=== PATIENT | female | born 1985 | race Hispanic/Latino ===

== ENCOUNTER 2019-04-15 15:53 | Emergency (ER) | payer OTHER ==
[~2019-04-15] VITALS: Ht 154.9 cm; Wt 78.0 kg
--- OUTSIDE RECORDS SUMMARY | 2019-04-15 15:56 | XMS REPORT | Continuity of Care Document ---
Author Author AudioTag Address Unknown Phone Unavailable Care Team Providers Care Gas Well Pumper Name Role Phone Quaero Unavailable Unavailable Problems Problem Status Onset Date Classification Date Reported Comments Source Other chest pain 07/24/2018 02/04/2019 [facility] Other complications of gastric band procedure 07/21/2018 01/30/2019 [facility] Chest pain 07/18/2018 02/04/2019 [facility] CHEST PAIN/ SOB Active 07/17/2018 [facility] BAND MALFUNCTION Active 06/08/2018 [facility] UNK Active 05/11/2018 [facility] E66.01 V Active 04/23/2018 [facility] E66.01 Active 04/05/2018 [facility] DX: K95.09=OTHER COMPLICATIONS OF GASTRI Active 04/03/2018 [facility] Other ovarian cyst, left side 12/01/2017 03/01/2018 [facility] Abdominal pain 11/23/2017 03/01/2018 [facility] Ovarian cyst 11/23/2017 03/01/2018 [facility] ABDOMINAL PAIN Active 11/23/2017 [facility] DX: K21.9=GASTRO-ESOPHAGEAL REFLUX DISEA Active 06/27/2017 [facility] SOB Active 04/26/2017 Problem 04/24/[address] [facility] Discharge Diagnosis: Acute gastritis 03/26/2015 03/30/2015 [facility] Discharge Diagnosis: Acute headache 03/26/2015 03/30/2015 [facility] NECK PAIN Active 03/26/2015 [facility] Discharge Diagnosis: VAginal bleeding 01/25/2014 01/27/2014 [facility] Discharge Diagnosis: Dysfunctional uterine bleeding 01/25/2014 01/27/[address] [facility] [address] SENT Active 01/25/2014 [facility] Bariatric surgery status 12/06/2018 [facility] Gastric band malfunction Active Problem 02/04/2019 [facility] Gastro-esophageal reflux disease without esophagitis 12/04/2018 [facility] Other gastritis without bleeding 12/04/2018 [facility] Allergy status to other antibiotic agents status 02/04/2019 [facility] Nicotine dependence, cigarettes, uncomplicated 02/04/2019 [facility] Body mass index 40.0-44.9, adult 01/30/2019 [facility] Surgical operation with implant of artificial internal device as the cause of abnormal reaction of the patient, or of later complication, without mention of misadventure at the time of the procedure 01/30/2019 [facility] Morbid obesity due to excess calories 01/30/2019 [facility] Essential hypertension 01/30/2019 [facility] Medications Medication Details Route Status Patient Instructions Ordering Provider Order Date Source Diazepam 5 MG Oral Tablet [Valium] 5 mg=1 tab, PO, TID, PRN Muscle Spasms, X 3 day, # 9 tab, 0 Refill(s) No Longer Active 07/18/2018 [facility] Fentanyl 50 microgram, Route: IVP, ONCE, Dosing Weight 104.091, kg, Priority: STAT, Start date: 07/17/18 23:54:00 CDT, Stop date: 07/17/18 23:54:00 CDT No Longer Active 07/18/2018 [facility] Morphine 4 mg, 1 mL, Route: IVP, Drug form: SOLN, ONCE, Dosing Weight 104.091, kg, Priority: STAT, Start date: 07/17/18 22:52:00 CDT, Stop date: 07/17/18 22:52:00 CDTNotes: (Same as:MORPhine Sulfate) Inactive 07/18/2018 [facility] NS (Bolus) IV 1,000 mL, 1,000 ml/hr, Infuse Over: 1 hr, Route: IV, 1,000, Drug form: INJ, ONCE, Priority: STAT, Dosing Weight 104.091 kg, Start date: 07/17/18 22:31:00 CDT, Stop date: 07/17/18 22:31:00 CDT Inactive 07/18/2018 [facility] Zofran 4 mg, 2 mL, Route: IVP, Drug form: INJ, ONCE, Dosing Weight 104.091, kg, Priority: STAT, Start date: 07/17/18 22:31:00 CDT, Stop date: 07/17/18 22:31:00 CDTNotes: (Same as: Zofran) MEDICATION WASTE Product Size: 4 mg Product Wasted: ___ mg Inactive 07/18/2018 [facility] Morphine 4 mg, 1 mL, Route: IVP, Drug form: SOLN, ONCE, Dosing Weight 104.091, kg, Priority: STAT, Start date: 07/17/18 22:31:00 CDT, Stop date: 07/17/18 22:31:00 CDTNotes: (Same as:MORPhine Sulfate) Inactive 07/18/2018 [facility] Saline Flush 0.9% 10 mL, Route: IVP, Drug Form: INJ, Dosing Weight 104.091, kg, PRN, PRN Line Flush, Start date: 07/17/18 22:30:00 CDT, Duration: 30 day, Stop date: 08/16/18 21:29:00 CSTNotes: (Same as: BD Posiflush) No Longer Active 07/18/2018 [facility] Ondansetron 4 MG Disintegrating Tablet [Zofran] 4 mg=1 tab, PO, BID, PRN Nausea and Vomiting, Dissolve tab under tongue, # 10 tab, 0 Refill(s) Active 07/13/2018 [facility] omeprazole 20 mg oral delayed release capsule 20 mg=1 cap, PO, BID, # 60 cap, 0 Refill(s) Active 07/13/2018 [facility] tramadol hydrochloride 50 MG Oral Tablet 50 mg=1 tab, PO, Q6H, PRN Pain Score 6-10, X 7 day, # 28 tab, 0 Refill(s) No Longer Active 07/13/2018 [facility] Acetaminophen 1,000 mg, 31.23 mL, Route: PO, Drug form: LIQ, Q6Hnow, Dosing Weight 107.727, kg, Start date: 07/12/18 11:00:00 CDT, Duration: 30 day, Stop date: 08/11/18 5:00:00 CSTNotes: Max fumgrvysliirk=5422dc/day (4 gm/day). (Same as: Tylenol) No Longer Active 07/12/2018 [facility] Lovenox 30 mg, 0.3 mL, Route: SUB-Q, Drug form: INJ, [id number], Dosing Weight 107.727, kg, Start date: 07/12/18 9:00:00 CDT, Duration: 30 day, Stop date: 08/10/18 21:00:00 CSTNotes: (Same as: Lovenox) No Longer Active 07/12/2018 [facility] Famotidine 20 mg, 2 mL, Route: IVP, Drug form: INJ, Q12H- 10, Dosing Weight 107.727, kg, Start date: 07/11/18 23:00:00 CDT, Duration: 30 day, Stop date: 08/10/18 22:00:00 NIB ASSEMBLER No Longer Active 07/12/2018 [facility] Lactated Ringers IV 1,000 mL 1,000 mL, Rate: 100 ml/hr, Infuse over: 10 hr, Route: IV, Dosing Weight 107.727 kg, Total Volume: 1,000, Start date: 07/11/18 20:20:00 CDT, Duration: 30 day, Stop date: 08/10/18 20:19:00 NIB ASSEMBLER, 2.2, m2 No Longer Active 07/12/2018 [facility] Sodium Chloride 0.9% IV 984.8 mL + M.V.I.-12 10 mL Daily + folic acid IV 1 mg Daily + thiamine IV 5 984.8 mL, Rate: 100 ml/hr, Infuse over: 9.8 hr, Route: IV, Dosing Weight 107.727 kg, Total Volume: 984.8, Start date: 07/11/18 20:14:00 CDT, Duration: 1 doses or times, Stop date: 07/12/18 6:13:00 CDT, 2.2, m2 Inactive 07/12/2018 [facility] Acetaminophen 1,000 mg, 100 mL, Route: IVPB, Drug form: INJ, Q6H, Dosing Weight 107.727, kg, Start date: 07/11/18 19:31:00 CDT, Duration: 30 day, Stop date: 08/10/18 16:00:00 CSTNotes: Infuse over 15 minutes Do not exceed 4gm/day of acetaminophen MEDICATION WASTE Product Size: 1000 mg Product Wasted: ___ mg No Longer Active 07/12/2018 [facility] Ondansetron 4 mg, 2 mL, Route: IVP, Drug form: INJ, Q6H, Dosing Weight 107.727, kg, Start date: 07/11/18 18:00:00 CDT, Duration: 30 day, Stop date: 08/10/18 12:00:00 CSTNotes: (Same as: Cassy) MEDICATION WASTE Product Size: 4 mg Product Wasted: ___ mg No Longer Active 07/11/2018 [facility] sugammadex (ANES) Route: IV, Drug form: SOLN, ONCE, Stop date: 07/11/18 16:31:00 CDT Inactive 07/11/2018 [facility] sugammadex 500 mg, 5 mL, Route: IV, Drug form: SOLN, ONCALL, Start date: 07/11/18 16:24:00 CDT, Duration: 1 doses or times, Stop date: 07/11/18 16:24:00 CDTNotes: (Same as: Bridion) No Longer Active 07/11/2018 [facility] cefOXitin (ANES) Route: IV, Drug form: INJ, ONCE, Stop date: 07/11/18 16:14:00 CDT Inactive 07/11/2018 [facility] fentaNYL (ANES) Route: IV, Drug form: INJ, ONCE, Stop date: 07/11/18 16:14:00 CDT Inactive 07/11/2018 [facility] ondansetron (ANES) Route: IV, Drug form: INJ, ONCE, Stop date: 07/11/18 16:14:00 CDT Inactive 07/11/2018 [facility] dexamethasone (ANES) Route: IV, Drug form: INJ, ONCE, Stop date: 07/11/18 16:09:00 CDT Inactive 07/11/2018 [facility] rocuronium (ANES) Route: IV, Drug form: INJ, ONCE, Stop date: 07/11/18 15:59:00 CDT Inactive 07/11/2018 [facility] sugammadex 200 mg, 2 mL, Route: IV, Drug form: SOLN, ONCALL, Start date: 07/11/18 15:49:00 CDT, Duration: 1 doses or times, Stop date: 07/11/18 15:49:00 CDTNotes: (Same as: Bridion) No Longer Active 07/11/2018 [facility] acetaminophen (ANES) 10 mg Route: IV, Drug form: INJ, Start date: 07/11/18 15:38:00 CDT, Stop date: 07/11/18 16:38:00 CDT Inactive 07/11/2018 [facility] Dexamethasone 4 mg, 1 mL, Route: IVP, Drug form: INJ, ONCE, Dosing Weight 107.727, kg, PRN Nausea & Vomiting, Start date: 07/11/18 14:09:00 CDTNotes: Concentration: 4mg/ml Inactive 07/11/2018 [facility] Promethazine 6.25 mg, 0.25 mL, Route: IVPB, Drug form: INJ, ONCE, Dosing Weight 107.727, kg, PRN Nausea & Vomiting, Start date: 07/11/18 14:09:00 CDTNotes: Do not give IV push. (Same as: Phenergan) Inactive 07/11/2018 [facility] Ketorolac 30 mg, 1 mL, Route: IVP, Drug form: INJ, ONCE, Dosing Weight 107.727, kg, Start date: 07/11/18 14:09:00 CDT, Stop date: 07/11/18 14:09:00 CDTNotes: (Same as:Toradol) IV bolus must be given >15 seconds. Give IM administration slowly and deeply into the muscle. Not for use > 4 days MEDICATION WASTE Product Size: 30 mg Product Wasted: ___ mg Inactive 07/11/2018 [facility] Ondansetron 4 mg, 2 mL, Route: IVP, Drug form: INJ, ONCE, Dosing Weight 107.727, kg, PRN Nausea & Vomiting, Start date: 07/11/18 14:09:00 CDTNotes: (Same as: Zofran) MEDICATION WASTE Product Size: 4 mg Product Wasted: ___ mg Inactive 07/11/2018 [facility] Flumazenil 0.2 mg, 2 mL, Route: IVP, Drug form: INJ, PRN, Dosing Weight 107.727, kg, PRN Benzodiazepine Reversal, Initial dose, Start date: 07/11/18 14:09:00 CDT, Duration: 30 day, Stop date: 08/10/18 13:08:00 CSTNotes: (Same as: Romazicon) Inactive 07/11/2018 [facility] Naloxone 0.4 mg, 1 mL, Route: IVP, Drug form: INJ, Q2MIN, Dosing Weight 107.727, kg, PRN Narcotic Reversal, Start date: 07/11/18 14:09:00 CDT, Duration: 8 doses or times, Stop date: 07/12/18 0:00:00 CDTNotes: Same as Narcan Inactive 07/11/2018 [facility] Hydromorphone 0.5 mg, 0.25 mL, Route: IVP, Drug form: INJ, Q5Min, Dosing Weight 107.727, kg, PRN Pain Score 7-10, Start date: 07/11/18 14:09:00 CDT, Duration: 4 doses or times, Stop date: 07/12/18 0:00:00 CDTNotes: Same as Dilaudid Inactive 07/11/2018 [facility] phenylephrine (ANES) Route: IV, Drug form: INJ, ONCE, Stop date: 07/11/18 13:08:00 CDT Inactive 07/11/2018 [facility] celecoxib 200 mg, 1 cap, Route: PO, Drug form: CAP, [id number], Dosing Weight 107.727, kg, Start date: 07/11/18 13:00:00 CDT, Duration: 30 day, Stop date: 08/10/18 1:00:00 CSTNotes: NSAID. Please check indication. Not for seizure. (Same As: CeleBREX) No Longer Active 07/11/2018 [facility] gabapentin 300 mg, 6 mL, Route: PO, Drug form: SOLN, Q8Hnow, Dosing Weight 107.727, kg, Start date: 07/11/18 13:00:00 CDT, Duration: 30 day, Stop date: 08/10/18 5:00:00 CSTNotes: (Same as: Neurontin) No Longer Active 07/11/2018 [facility] gabapentin 300 MG Oral Capsule 300 mg, 1 cap, Route: PO, TID, Dosing Weight 107.727, kg, Start date: 07/11/18 13:00:00 CDT, Duration: 30 day, Stop date: 08/10/18 9:00:00 NIB ASSEMBLER Inactive 07/11/2018 [facility] lidocaine (ANES) Route: IV, Drug form: INJ, ONCE, Stop date: 07/11/18 12:28:00 CDT Inactive 07/11/2018 [facility] propofol (ANES) Route: IV, Drug form: INJ, ONCE, Stop date: 07/11/18 12:28:00 CDT Inactive 07/11/2018 [facility] rocuronium (ANES) Route: IV, Drug form: INJ, ONCE, Stop date: 07/11/18 12:28:00 CDT Inactive 07/11/2018 [facility] midazolam (ANES) Route: IV, Drug form: SOLN, ONCE, Stop date: 07/11/18 12:28:00 CDT Inactive 07/11/2018 [facility] fentaNYL (ANES) Route: IV, Drug form: INJ, ONCE, Stop date: 07/11/18 12:28:00 CDT Inactive 07/11/2018 [facility] ondansetron (ANES) Route: IV, Drug form: INJ, ONCE, Stop date: 07/11/18 12:28:00 CDT Inactive 07/11/2018 [facility] famotidine (ANES) Route: IV, Drug form: INJ, ONCE, Stop date: 07/11/18 12:28:00 CDT Inactive 07/11/2018 [facility] cefOXitin (ANES) Route: IV, Drug form: INJ, ONCE, Stop date: 07/11/18 12:23:00 CDT Inactive 07/11/2018 [facility] Promethazine 12.5 mg, 0.5 mL, Route: IM, Drug form: INJ, Q6H, Dosing Weight 107.727, kg, PRN Nausea & Vomiting, Start date: 07/11/18 12:20:00 CDT, Duration: 30 day, Stop date: 08/10/18 12:19:00 CSTNotes: Do not g rabia IV push. (Same as: Phenergan) No Longer Active 07/11/2018 [facility] Tramadol 100 mg, 2 tab, Route: PO, Drug form: TAB, Q6Hnow, Dosing Weight 107.727, kg, PRN Pain Score 7-10, Start date: 07/11/18 12:20:00 CDT, Duration: 30 day, Stop date: 08/10/18 12:19:00 CSTNotes: Not to exceed 400mg/day. (Same As: Ultram) No Longer Active 07/11/2018 [facility] Sodium Chloride 0.9% IV (ANES) 100 mL + dexmedetomidine (ANES) 200 microgram Route: IV, Drug form: INJ, Start date: 07/11/18 11:30:00 CDT, Stop date: 07/11/18 12:30:00 CDT Inactive 07/11/2018 [facility] Sodium Chloride 0.9% IV (ANES) 100 mL + ketAMINE (ANES) 100 mg Route: IV, Drug form: INJ, Start date: 07/11/18 11:30:00 CDT, Stop date: 07/11/18 12:30:00 CDT Inactive 07/11/2018 [facility] Lactated Ringers Injection IV (ANES) 1000 mL Route: IV, Total Volume: 1,000, Start date: 07/11/18 11:28:00 CDT, Stop date: 07/11/18 12:28:00 CDT Inactive 07/11/2018 [facility] Mefoxin 2 gm, Route: IVPB, Drug form: INJ, PRE OP, Start date: 07/11/18 11:00:00 CDT, Duration: 1 day, Stop date: 07/12/18 10:59:00 CDT, ABX Indication: Surgical ProphylaxisNotes: (Same As: Mefoxin) MEDICATION WASTE Product Size: 2000 mg Product Wasted: ___ mg No Longer Active 07/11/2018 [facility] gabapentin 300 MG Oral Capsule 300 mg, 1 cap, Route: PO, Drug form: CAP, ONCE, Dosing Weight 107.727, kg, Start date: 07/11/18 10:26:00 CDT, Stop date: 07/11/18 10:26:00 CDTNotes: (Same as: Neurontin) Inactive 07/11/2018 [facility] 72 HR Scopolamine 0.0139 MG/HR Transdermal Patch 1 patch, Route: TOP, Dosing Weight 107.727, kg, ONCE, Start date: 07/11/18 10:18:00 CDT, Stop date: 07/11/18 10:18:00 CDT Inactive 07/11/2018 [facility] Celebrex 400 mg, Route: PO, Drug form: CAP, ONCE, Dosing Weight 107.727, kg, Start date: 07/11/18 10:18:00 CDT, Stop date: 07/11/18 10:18:00 CDT Inactive 07/11/2018 [facility] heparin 5,000 unit, Route: SUB-Q, ONCE, Dosing Weight 107.727, kg, Start date: 07/11/18 10:17:00 CDT, Stop date: 07/11/18 10:17:00 CDT Inactive 07/11/2018 [facility] multivitamin 1 tab, PO, Daily, 0 Refill(s) Active 07/11/2018 [facility] 72 HR Scopolamine 0.0139 MG/HR Transdermal Patch 1 patch, Route: TOP, Drug Form: ERFILM, Dosing Weight 110, kg, PRE OP, Apply behind ear. Avoid use in elderly., Start date: 07/11/18 6:00:00 CDT, Duration: 30 day, Stop date: 08/10/18 4:59:00 NIB ASSEMBLER No Longer Active 07/11/2018 [facility] Tramadol 100 mg, Route: PO, Drug form: TAB, PRE OP, Dosing Weight 110, kg, PRN Pain Score 7-10, Start date: 07/11/18 6:00:00 CDT, Duration: 30 day, Stop date: 09/09/18 4:59:00 NIB ASSEMBLER No Longer Active 07/11/2018 [facility] gabapentin 300 mg, Route: PO, PRE OP, Dosing Weight 110, kg, Start date: 07/11/18 6:00:00 CDT, Duration: 30 day, Stop date: 08/10/18 4:59:00 NIB ASSEMBLER No Longer Active 07/11/2018 [facility] celecoxib 400 mg, Route: PO, PRE OP, Dosing Weight 110, kg, Start date: 07/11/18 6:00:00 CDT, Duration: 30 day, Stop date: 08/10/18 4:59:00 NIB ASSEMBLER No Longer Active 07/11/2018 [facility] Acetaminophen 1,000 mg, Route: PO, PRE OP, Dosing Weight 110, kg, Start date: 07/11/18 6:00:00 CDT, Duration: 30 day, Stop date: 08/10/18 4:59:00 NIB ASSEMBLER No Longer Active 07/11/2018 [facility] Emend 40 mg, Route: PO, PRE OP, Dosing Weight 110, kg, Start date: 07/11/18 6:00:00 CDT Active 07/11/2018 [facility] Tramadol 50 mg, Route: PO, Drug form: TAB, Q6H, Dosing Weight 110, kg, PRN Pain Score 4-6, Start date: 07/10/18 16:46:00 CDT, Duration: 30 day, Stop date: 08/09/18 16:45:00 NIB ASSEMBLER Inactive 07/10/2018 [facility] Sodium Chloride 0.9% IV 1,000 mL 1,000 mL, Rate: 25 ml/hr, Infuse over: 40 hr, Route: IV, Dosing Weight 106.091 kg, Total Volume: 1,000, Start date: 05/17/18 12:14:00 CDT, Duration: 30 day, Stop date: 06/16/18 12:13:00 CDT, 2.18, m2 Inactive 05/17/2018 [facility] Omnipaque 300 5 btl, Route: IMPLANT, Dosing Weight 97.727, kg, ONCE, Start date: 04/20/18 13:09:00 CDT, Stop date: 04/20/18 13:09:00 CDT No Longer Active 04/20/2018 [facility] Ketorolac 30 mg, Route: IVP, Drug form: INJ, ONCE, Dosing Weight 97.727, kg, Priority: STAT, Start date: 11/23/17 18:48:00 NIB ASSEMBLER, Stop date: 11/23/17 18:48:00 NIB ASSEMBLER Inactive 11/24/2017 [facility] Ondansetron 4 MG Oral Tablet [Zofran] 4 mg=1 tab, PO, BID, # 10 tab, 0 Refill(s) Active 11/24/2017 [facility] Acetaminophen 300 MG / Codeine Phosphate 30 MG Oral Tablet [Tylenol with Codeine #3] 1 - 2 tab, PO, Q4H, PRN Pain, X 2 day, # 20 tab, 0 Refill(s) No Longer Active 11/24/2017 [facility] Metronidazole 500 MG Oral Tablet [Flagyl] 500 mg=1 tab, PO, Q8H, X 10 day, # 30 tab, 0 Refill(s) No Longer Active 11/24/2017 [facility] ciprofloxacin 500 mg oral tablet 500 mg=1 tab, PO, Q12H, X 7 day, # 14 tab, 0 Refill(s) No Longer Active 11/24/2017 [facility] Zofran 2 mg, Route: IVP, Drug form: INJ, ONCE, Dosing Weight 97.727, kg, Priority: STAT, Start date: 11/23/17 16:54:00 NIB ASSEMBLER, Stop date: 11/23/17 16:54:00 NIB ASSEMBLER Inactive 11/23/2017 [facility] Acetaminophen 325 MG / Hydrocodone Bitartrate 5 MG Oral Tablet [Gasquet 5/325] 1 tab, Route: PO, Drug Form: TAB, Dosing Weight 97.727, kg, ONCE, STAT, Start date: 11/23/17 16:54:00 NIB ASSEMBLER, Stop date: 11/23/17 16:54:00 NIB ASSEMBLER Inactive 11/23/2017 [facility] Fentanyl 100 microgram, Route: IVP, ONCE, Dosing Weight 97.727, kg, Priority: STAT, Start date: 11/23/17 13:36:00 NIB ASSEMBLER, Stop date: 11/23/17 13:36:00 NIB ASSEMBLER Inactive 11/23/2017 [facility] NS (Bolus) IV 1,000 mL, 1,000 ml/hr, Infuse Over: 1 hr, Route: IV, ONCE, Priority: STAT, Dosing Weight 97.727 kg, Start date: 11/23/17 13:36:00 NIB ASSEMBLER, Stop date: 11/23/17 13:36:00 NIB ASSEMBLER Inactive 11/23/2017 [facility] Zofran 4 mg, Route: IVP, Drug form: INJ, ONCE, Dosing Weight 97.727, kg, Priority: STAT, Start date: 11/23/17 13:36:00 NIB ASSEMBLER, Stop date: 11/23/17 13:36:00 NIB ASSEMBLER Inactive 11/23/2017 [facility] tramadol hydrochloride 50 MG Oral Tablet [Ultram] 50 mg=1 tab, PO, Q4H, PRN pain, X 3 day, # 20 tab, 0 Refill(s) Active 03/27/2015 [facility] Promethazine Hydrochloride 12.5 MG Oral Tablet [Phenergan] 12.5 mg=1 tab, PO, Q4H, PRN Other-See Comments, X 3 day, # 18 tab, 0 Refill(s) Active 03/27/2015 [facility] Morphine 2 mg, Route: IVP, Drug form: INJ, ONCE, Dosing Weight 84.091, kg, Priority: STAT, Start date: 03/26/15 22:58:00, Stop date: 03/26/15 22:58:00 Inactive 03/27/2015 [facility] Sodium Chloride 0.154 MEQ/ML Injectable Solution 1,000 mL, 1,000 ml/hr, Infuse Over: 1 hr, Route: IV, ONCE, Priority: STAT, Dosing Weight 84.091 kg, Start date: 03/26/15 22:58:00, Duration: 1 doses or times, Stop date: 03/26/15 22:58:00 Inactive 03/27/2015 [facility] Zofran 4 mg, Route: IVP, Drug form: INJ, ONCE, Dosing Weight 84.091, kg, Priority: STAT, Start date: 03/26/15 22:36:00, Stop date: 03/26/15 22:36:00 Inactive 03/27/2015 [facility] Acetaminophen 325 MG / Hydrocodone Bitartrate 10 MG Oral Tablet 1 tab, Route: PO, Drug Form: TAB, Dosing Weight 84.091, kg, ONCE, STAT, Start date: 03/26/15 21:55:00, Stop date: 03/26/15 21:55:00Notes: Do not exceed 4gm/day of acetaminophen. (Same as: Gasquet 325/10) Inactive 03/27/2015 [facility] Ketorolac 15 mg, Route: IVP, ONCE, Dosing Weight 84.091, kg, Priority: STAT, Start date: 03/26/15 20:32:00, Stop date: 03/26/15 20:32:00 Inactive 03/27/2015 [facility] Sodium Chloride 0.154 MEQ/ML Injectable Solution 1,000 mL, Infuse Over: 1 hr, Route: IV, ONCE, Priority: STAT, Dosing Weight 84.091 kg, Start date: 03/26/15 20:32:00, Duration: 1 doses or times, Stop date: 03/26/15 20:32:00 Inactive 03/27/2015 [facility] Saline Flush 0.9% 10 mL, Route: IVP, Drug Form: INJ, Dosing Weight 84.091, kg, PRN, PRN Line Flush, Start date: 03/26/15 20:32:00, Duration: 30 day, Stop date: 04/25/15 20:31:00Notes: (Same as: BD Posiflush) No Longer Active 03/27/2015 [facility] Acetaminophen 975 mg, Route: PO, Drug form: TAB, ONCE, Dosing Weight 84.091, kg, Priority: STAT, Start date: 03/26/15 19:16:00, Stop date: 03/26/15 19:16:00 Inactive 03/27/2015 [facility] Acetaminophen 325 MG / Hydrocodone Bitartrate 5 MG Oral Tablet [Gasquet 5/325] 1-2 tab, PO, Q4-6H, Pain, # 12 tab, 0 Refill(s) Active 01/25/2014 [facility] medroxyprogesterone acetate 10 MG Oral Tablet [Provera] 10 mg=1 tab, PO, Daily, # 7 tab, 0 Refill(s) Active 01/25/2014 [facility] Provera 10 mg, 1 tab, Route: PO, Drug form: TAB, ONCE, Dosing Weight 81.818, kg, Start date: 01/25/14 3:49:00, Stop date: 01/25/14 3:49:00Notes: (Same as: Provera) Inactive 01/25/2014 [facility] Morphine 4 mg, Route: IVP, ONCE, Dosing Weight 81.818, kg, Start date: 01/25/14 3:22:00, Stop date: 01/25/14 3:22:00 Inactive 01/25/2014 [facility] Acetaminophen 325 MG / Hydrocodone Bitartrate 5 MG Oral Tablet [Gasquet 5/325] 2 tab, Route: PO, Dosing Weight 81.818, kg, ONCE, Start date: 01/25/14 2:00:00, Stop date: 01/25/14 2:00:00 Inactive 01/25/2014 [facility] Allergies, Adverse Reactions, Alerts Substance Category Reaction Severity Reaction type Status Date Reported Comments Source Vancomycin Propensity to adverse reactions to drug Active 04/26/[address] [facility] vancomycin Assertion Drug allergy Active [facility] Immunizations No Data Provided for This Section Results Order Name Results Value Reference Range Date Interpretation Comments Source CARDIAC ENZYMES Troponin-I <0.02 0.00 - 0.40 07/18/2018 [facility] CARDIAC ENZYMES Total CK 59 12 - 191 07/18/2018 [facility] CARDIAC ENZYMES Troponin-I <0.02 0.00 - 0.40 07/18/2018 [facility] ELECTROLYTES AGAP 14.9 10.0 - 20.0 07/18/2018 [facility] ELECTROLYTES Globulin 4.8 2.7 - 4.2 07/18/2018 [facility] ELECTROLYTES B/C Ratio 12 6 - 25 07/18/2018 [facility] ELECTROLYTES A/G Ratio 0.8 0.7 - 1.6 07/18/2018 [facility] ELECTROLYTES eGFR 103 07/18/2018 Result Comment: The eGFR is calculated using the CKD-EPI formula. In most young, healthy individuals the eGFR will be >90 mL/min/1.73m2. The eGFR declines with age. An eGFR of 60-89 may be normal in some populations, particularly the elderly, for whom the CKD-EPI formula has not been extensively validated. Use of the eGFR is not recommended in the following populations:

Individuals with unstable creatinine concentrations, including patients and those with serious co-morbid conditions.

Patients with extremes in muscle mass or diet.

The data above are obtained from the [employer] Education Program (NKDEP) which additionally recommends that when the eGFR is used in patients with extremes of body mass index for purposes of drug dosing, the eGFR should be multiplied by the estimated BMI. [facility] ELECTROLYTES Albumin Lvl 3.6 3.5 - 5.0 07/18/2018 [facility] ELECTROLYTES ALT 74 0 - 65 07/18/2018 [facility] Total Protein 8.4 6.4 - 8.4 07/18/2018 [facility] ELECTROLYTES Glucose Lvl 89 70 - 99 07/18/2018 [facility] ELECTROLYTES Bili Total 0.4 0.2 - 1.3 07/18/2018 [facility] ELECTROLYTES Chloride Lvl 103 95 - 109 07/18/2018 [facility] ELECTROLYTES BUN 9 7 - 22 07/18/2018 [facility] ELECTROLYTES Creatinine Lvl 0.75 0.50 - 1.40 07/18/2018 [facility] ELECTROLYTES Potassium Lvl 3.9 3.5 - 5.1 07/18/2018 [facility] ELECTROLYTES Sodium Lvl 139 135 - 145 07/18/2018 [facility] ELECTROLYTES CO2 25 24 - 32 07/18/2018 [facility] ELECTROLYTES Calcium Lvl 8.9 8.5 - 10.5 07/18/2018 [facility] ELECTROLYTES AST 25 0 - 37 07/18/2018 [facility] ELECTROLYTES Alk Phos 123 39 - 136 07/18/2018 [facility] ENDOCRINOLOGY S Preg Negative *NA* (07/17/18 11:10 PM) Negative 07/18/2018 [facility] HEMATOLOGY Eosinophils # 0.3 0.0 - 0.5 07/18/2018 [facility] HEMATOLOGY Basophils # 0.1 0.0 - 0.2 07/18/2018 [facility] HEMATOLOGY Monocytes # 0.6 0.0 - 0.8 07/18/2018 [facility] HEMATOLOGY Neutrophils # 6.3 1.5 - 8.1 07/18/2018 [facility] HEMATOLOGY Lymphocytes # 3.0 1.0 - 5.5 07/18/2018 [facility] HEMATOLOGY Eosinophils 3.0 0.0 - 4.0 07/18/2018 [facility] HEMATOLOGY Basophils 0.5 0.0 - 1.0 07/18/2018 [facility] HEMATOLOGY Monocytes 6.2 2.0 - 12.0 07/18/2018 [facility] HEMATOLOGY Segs 61.4 45.0 - 75.0 07/18/2018 [facility] HEMATOLOGY Lymphocytes 28.9 20.0 - 40.0 07/18/2018 [facility] HEMATOLOGY PT 13.0 12.0 - 14.7 07/18/2018 [facility] HEMATOLOGY INR 0.98 0.85 - 1.17 07/18/2018 [facility] HEMATOLOGY PTT 31.5 22.9 - 35.8 07/18/2018 [facility] HEMATOLOGY Hct 38.6 36.0 - 48.0 07/18/2018 [facility] HEMATOLOGY RBC 4.48 4.20 - 5.40 07/18/2018 [facility] HEMATOLOGY Hgb 13.0 12.0 - 16.0 07/18/2018 [facility] HEMATOLOGY WBC 10.3 3.7 - 10.4 07/18/2018 [facility] HEMATOLOGY MPV 9.3 7.4 - 10.4 07/18/2018 [facility] HEMATOLOGY Platelet 330 133 - 450 07/18/2018 [facility] HEMATOLOGY RDW 15.0 11.5 - 14.5 07/18/2018 [facility] HEMATOLOGY MCHC 33.6 32.0 - 36.0 07/18/2018 [facility] HEMATOLOGY MCH 29.0 27.0 - 31.0 07/18/2018 [facility] HEMATOLOGY MCV 86.2 80.0 - 98.0 07/18/2018 [facility] CARDIAC ENZYMES CK MB Index 0.5 0.0 - 2.5 07/13/2018 [facility] CARDIAC ENZYMES CK MB 2.3 0.5 - 3.6 07/13/2018 [facility] CARDIAC ENZYMES Total CK 452 12 - 191 07/13/2018 [facility] CARDIAC ENZYMES Troponin-T <0.010 0.000 - 0.100 07/13/2018 [facility] CARDIAC ENZYMES Troponin-I <0.02 0.00 - 0.40 07/13/2018 [facility] CHEM PANEL Magnesium Lvl 1.8 1.8 - 2.4 07/13/2018 [facility] CHEM PANEL Phosphorus 2.5 2.5 - 4.5 07/13/2018 [facility] ELECTROLYTES AGAP 14.0 10.0 - 20.0 07/13/2018 [facility] ELECTROLYTES CO2 25 24 - 32 07/13/2018 [facility] ELECTROLYTES Calcium Lvl 8.0 8.5 - 10.5 07/13/2018 [facility] ELECTROLYTES Chloride Lvl 106 95 - 109 07/13/2018 [facility] ELECTROLYTES eGFR 106 07/13/2018 Result Comment: The eGFR is calculated using the CKD-EPI formula. In most young, healthy individuals the eGFR will be >90 mL/min/1.73m2. The eGFR declines with age. An eGFR of 60-89 may be normal in some populations, particularly the elderly, for whom the CKD-EPI formula has not been extensively validated. Use of the eGFR is not recommended in the following populations:

Individuals with unstable creatinine concentrations, including patients and those with serious co-morbid conditions.

Patients with extremes in muscle mass or diet.

The data above are obtained from the National Kidney Disease Education Program (NKDEP) which additionally recommends that when the eGFR is used in patients with extremes of body mass index for purposes of drug dosing, the eGFR should be multiplied by the estimated BMI. [facility] ELECTROLYTES BUN 8 7 - 22 07/13/2018 [facility] ELECTROLYTES Creatinine Lvl 0.74 0.50 - 1.40 07/13/2018 [facility] ELECTROLYTES Sodium Lvl 141 135 - 145 07/13/2018 [facility] ELECTROLYTES Potassium Lvl 4.0 3.5 - 5.1 07/13/2018 [facility] ELECTROLYTES Glucose Lvl 82 70 - 99 07/13/2018 [facility] HEMATOLOGY MPV 9.3 7.4 - 10.4 07/13/2018 [facility] HEMATOLOGY RDW 15.1 11.5 - 14.5 07/13/2018 [facility] HEMATOLOGY Platelet 197 133 - 450 07/13/2018 [facility] HEMATOLOGY MCHC 33.6 32.0 - 36.0 07/13/2018 [facility] HEMATOLOGY MCH 29.6 27.0 - 31.0 07/13/2018 [facility] HEMATOLOGY Hct 29.1 36.0 - 48.0 07/13/2018 [facility] HEMATOLOGY MCV 88.0 80.0 - 98.0 07/13/2018 [facility] HEMATOLOGY Hgb 9.8 12.0 - 16.0 07/13/2018 [facility] HEMATOLOGY RBC 3.30 4.20 - 5.40 07/13/2018 [facility] HEMATOLOGY WBC 8.7 3.7 - 10.4 07/13/2018 [facility] HEMATOLOGY Neutrophils # 5.7 1.5 - 8.1 07/13/2018 [facility] HEMATOLOGY Lymphocytes # 2.4 1.0 - 5.5 07/13/2018 [facility] HEMATOLOGY Segs 65.4 45.0 - 75.0 07/13/2018 [facility] HEMATOLOGY Monocytes # 0.5 0.0 - 0.8 07/13/2018 [facility] HEMATOLOGY Monocytes 6.3 2.0 - 12.0 07/13/2018 [facility] HEMATOLOGY Lymphocytes 27.5 20.0 - 40.0 07/13/2018 [facility] HEMATOLOGY Basophils 0.3 0.0 - 1.0 07/13/2018 [facility] HEMATOLOGY Eosinophils 0.5 0.0 - 4.0 07/13/2018 [facility] PARATHYROID PROFILE Ca Norm WB 1.08 1.05 - 1.25 07/13/2018 [facility] PARATHYROID PROFILE Ca Ion WB 1.09 1.05 - 1.25 07/13/2018 [facility] CHEM PANEL Magnesium Lvl 1.7 1.8 - 2.4 07/12/2018 [facility] CHEM PANEL Phosphorus 3.1 2.5 - 4.5 07/12/2018 [facility] ELECTROLYTES AGAP 12.3 10.0 - 20.0 07/12/2018 [facility] ELECTROLYTES eGFR 116 07/12/2018 Result Comment: The eGFR is calculated using the CKD-EPI formula. In most young, healthy individuals the eGFR will be >90 mL/min/1.73m2. The eGFR declines with age. An eGFR of 60-89 may be normal in some populations, particularly the elderly, for whom the CKD-EPI formula has not been extensively validated. Use of the eGFR is not recommended in the following populations:

Individuals with unstable creatinine concentrations, including patients and those with serious co-morbid conditions.

Patients with extremes in muscle mass or diet.

The data above are obtained from the National Kidney Disease Education Program (NKDEP) which additionally recommends that when the eGFR is used in patients with extremes of body mass index for purposes of drug dosing, the eGFR should be multiplied by the estimated BMI. [facility] ELECTROLYTES Calcium Lvl 8.2 8.5 - 10.5 07/12/2018 [facility] ELECTROLYTES Chloride Lvl 103 95 - 109 07/12/2018 [facility] ELECTROLYTES CO2 26 24 - 32 07/12/2018 [facility] ELECTROLYTES Potassium Lvl 4.3 3.5 - 5.1 07/12/2018 [facility] ELECTROLYTES Sodium Lvl 137 135 - 145 07/12/2018 [facility] ELECTROLYTES Creatinine Lvl 0.64 0.50 - 1.40 07/12/2018 [facility] ELECTROLYTES BUN 6 7 - 22 07/12/2018 [facility] ELECTROLYTES Glucose Lvl 109 70 - 99 07/12/2018 [facility] HEMATOLOGY Monocytes 4.8 2.0 - 12.0 07/12/2018 [facility] HEMATOLOGY Neutrophils # 12.5 1.5 - 8.1 07/12/2018 [facility] HEMATOLOGY Monocytes # 0.7 0.0 - 0.8 07/12/2018 [facility] HEMATOLOGY Basophils 0.1 0.0 - 1.0 07/12/2018 [facility] HEMATOLOGY Lymphocytes # 1.1 1.0 - 5.5 07/12/2018 [facility] HEMATOLOGY Segs 87.6 45.0 - 75.0 07/12/2018 [facility] HEMATOLOGY Lymphocytes 7.5 20.0 - 40.0 07/12/2018 [facility] HEMATOLOGY RBC 3.82 4.20 - 5.40 07/12/2018 [facility] HEMATOLOGY WBC 14.3 3.7 - 10.4 07/12/2018 [facility] HEMATOLOGY MCV 88.3 80.0 - 98.0 07/12/2018 [facility] HEMATOLOGY MCHC 33.2 32.0 - 36.0 07/12/2018 [facility] HEMATOLOGY Hct 33.8 36.0 - 48.0 07/12/2018 [facility] HEMATOLOGY Hgb 11.2 12.0 - 16.0 07/12/2018 [facility] HEMATOLOGY MCH 29.3 27.0 - 31.0 07/12/2018 [facility] HEMATOLOGY RDW 14.9 11.5 - 14.5 07/12/2018 [facility] HEMATOLOGY MPV 9.9 7.4 - 10.4 07/12/2018 [facility] HEMATOLOGY Platelet 210 133 - 450 07/12/2018 [facility] PARATHYROID PROFILE Ca Ion WB 1.11 1.05 - 1.25 07/12/2018 [facility] PARATHYROID PROFILE Ca Norm WB 1.07 1.05 - 1.25 07/12/2018 [facility] BLOOD BANK RESULTS Antibody Scrn Negative (07/11/18 9:15 AM) 07/11/2018 [facility] BLOOD BANK RESULTS ABO/Rh O POS 07/11/2018 [facility] CHEM PANEL eGFR 98 07/05/2018 Result Comment: The eGFR is calculated using the CKD-EPI formula. In most young, healthy individuals the eGFR will be >90 mL/min/1.73m2. The eGFR declines with age. An eGFR of 60-89 may be normal in some populations, particularly the elderly, for whom the CKD-EPI formula has not been extensively validated. Use of the eGFR is not recommended in the following populations:

Individuals with unstable creatinine concentrations, including patients and those with serious co-morbid conditions.

Patients with extremes in muscle mass or diet.

The data above are obtained from the National Kidney Disease Education Program (NKDEP) which additionally recommends that when the eGFR is used in patients with extremes of body mass index for purposes of drug dosing, the eGFR should be multiplied by the estimated BMI. [facility] CHEM PANEL Sodium Lvl 140 135 - 145 07/05/2018 [facility] CHEM PANEL BUN 13 7 - 22 07/05/2018 [facility] CHEM PANEL Creatinine Lvl 0.79 0.50 - 1.40 07/05/2018 [facility] CHEM PANEL Glucose Lvl 64 70 - 99 07/05/2018 [facility] CHEM PANEL Bili Total 0.4 0.2 - 1.3 07/05/2018 [facility] CHEM PANEL Alk Phos 78 39 - 136 07/05/2018 [facility] CHEM PANEL Albumin Lvl 3.8 3.5 - 5.0 07/05/2018 [facility] CHEM PANEL AST 14 0 - 37 07/05/2018 [facility] CHEM PANEL ALT 20 0 - 65 07/05/2018 [facility] CHEM PANEL Chloride Lvl 103 95 - 109 07/05/2018 [facility] CHEM PANEL Total Protein 8.1 6.4 - 8.4 07/05/2018 [facility] CHEM PANEL Calcium Lvl 9.0 8.5 - 10.5 07/05/2018 [facility] CHEM PANEL Potassium Lvl 4.4 3.5 - 5.1 07/05/2018 [facility] CHEM PANEL CO2 30 24 - 32 07/05/2018 [facility] CHEM PANEL AGAP 11.4 10.0 - 20.0 07/05/2018 [facility] CHEM PANEL A/G Ratio 0.9 0.7 - 1.6 07/05/2018 [facility] CHEM PANEL Globulin 4.3 2.7 - 4.2 07/05/2018 [facility] CHEM PANEL B/C Ratio 16 6 - 25 07/05/2018 [facility] HEMATOLOGY INR 1.00 0.85 - 1.17 07/05/2018 [facility] HEMATOLOGY PTT 27.3 22.9 - 35.8 07/05/2018 [facility] HEMATOLOGY PT 13.2 12.0 - 14.7 07/05/2018 [facility] HEMATOLOGY TEG Interp Thrombelastograph results show increased values of both Angle Alpha and MA. These findings are suggestive of platelet hypercoagulation. CPT:51746 07/05/2018 [facility] HEMATOLOGY Max Amp 75.3 50.0 - 70.0 07/05/2018 [facility] HEMATOLOGY TEG Data See Note (07/05/18 4:20 PM) 07/05/2018 [facility] HEMATOLOGY Coag Index 2.4 -3.0-3.0 - 3.0 07/05/2018 [facility] HEMATOLOGY G-value 15.2 4.5 - 11.0 07/05/2018 [facility] HEMATOLOGY Ly30 0.9 0.0 - 7.5 07/05/2018 [facility] HEMATOLOGY R-time 6.3 5.0 - 10.0 07/05/2018 [facility] HEMATOLOGY K-time 1.2 1.0 - 3.0 07/05/2018 [facility] HEMATOLOGY Angle 72.4 53.0 - 72.0 07/05/2018 [facility] HEMATOLOGY Platelet 352 133 - 450 07/05/2018 [facility] HEMATOLOGY RDW 15.2 11.5 - 14.5 07/05/2018 [facility] HEMATOLOGY MPV 9.2 7.4 - 10.4 07/05/2018 [facility] HEMATOLOGY Hgb 13.1 12.0 - 16.0 07/05/2018 [facility] HEMATOLOGY RBC 4.56 4.20 - 5.40 07/05/2018 [facility] HEMATOLOGY WBC 8.7 3.7 - 10.4 07/05/2018 [facility] HEMATOLOGY MCV 87.2 80.0 - 98.0 07/05/2018 [facility] HEMATOLOGY MCHC 32.9 32.0 - 36.0 07/05/2018 [facility] HEMATOLOGY MCH 28.7 27.0 - 31.0 07/05/2018 [facility] HEMATOLOGY Hct 39.7 36.0 - 48.0 07/05/2018 [facility] HEMATOLOGY Eosinophils 1.2 0.0 - 4.0 07/05/2018 [facility] HEMATOLOGY Segs 66.0 45.0 - 75.0 07/05/2018 [facility] HEMATOLOGY Eosinophils # 0.1 0.0 - 0.5 07/05/2018 [facility] HEMATOLOGY Neutrophils # 5.7 1.5 - 8.1 07/05/2018 [facility] HEMATOLOGY Basophils 0.5 0.0 - 1.0 07/05/2018 [facility] HEMATOLOGY Monocytes 6.4 2.0 - 12.0 07/05/2018 [facility] HEMATOLOGY Lymphocytes 25.9 20.0 - 40.0 07/05/2018 [facility] HEMATOLOGY Monocytes # 0.6 0.0 - 0.8 07/05/2018 [facility] HEMATOLOGY Lymphocytes # 2.2 1.0 - 5.5 07/05/2018 [facility] SPECIAL CHEMISTRY Hgb A1C 5.4 <=5.6 % 07/05/2018 [facility] URINE CHEM U Preg Negative (05/15/18 8:07 AM) Negative 05/15/2018 [facility] URINE CHEM U Preg Negative (04/20/18 12:27 PM) Negative 04/20/2018 [facility] CHEM PANEL Calcium Lvl 8.5 8.5 - 10.5 11/23/2017 [facility] CHEM PANEL Total Protein 8.4 6.4 - 8.4 11/23/2017 [facility] CHEM PANEL Potassium Lvl 3.9 3.5 - 5.1 11/23/2017 [facility] PANEL Chloride Lvl 101 95 - 109 11/23/2017 [facility] CHEM PANEL CO2 25 24 - 32 11/23/2017 [facility] PANEL eGFR 105 11/23/2017 Result Comment: The eGFR is calculated using the CKD-EPI formula. In most young, healthy individuals the eGFR will be >90 mL/min/1.73m2. The eGFR declines with age. An eGFR of 60-89 may be normal in some populations, particularly the elderly, for whom the CKD-EPI formula has not been extensively validated. Use of the eGFR is not recommended in the following populations:

Individuals with unstable creatinine concentrations, including patients and those with serious co-morbid conditions.

Patients with extremes in muscle mass or diet.

The data above are obtained from the National Kidney Disease Education Program (NKDEP) which additionally recommends that when the eGFR is used in patients with extremes of body mass index for purposes of drug dosing, the eGFR should be multiplied by the estimated BMI. [facility] CHEM PANEL Albumin Lvl 3.5 3.5 - 5.0 11/23/2017 [facility] CHEM PANEL Alk Phos 71 39 - 136 11/23/2017 [facility] CHEM PANEL Bili Total 0.6 0.2 - 1.3 11/23/2017 [facility] CHEM PANEL ALT 18 0 - 65 11/23/2017 [facility] CHEM PANEL AST 11 0 - 37 11/23/2017 [facility] CHEM PANEL Sodium Lvl 137 135 - 145 11/23/2017 [facility] CHEM PANEL Glucose Lvl 72 70 - 99 11/23/2017 [facility] CHEM PANEL BUN 12 7 - 22 11/23/2017 [facility] CHEM PANEL Creatinine Lvl 0.75 0.50 - 1.40 11/23/2017 [facility] CHEM PANEL B/C Ratio 16 6 - 25 11/23/2017 [facility] CHEM PANEL Globulin 4.9 2.7 - 4.2 11/23/2017 [facility] CHEM PANEL AGAP 14.9 10.0 - 20.0 11/23/2017 [facility] CHEM PANEL A/G Ratio 0.7 0.7 - 1.6 11/23/2017 [facility] CHEM PANEL Lipase Lvl 113 73 - 393 11/23/2017 [facility] CHEM PANEL Magnesium Lvl 2.0 1.8 - 2.4 11/23/2017 [facility] ENDOCRINOLOGY S Preg Negative *NA* (11/23/17 1:08 PM) Negative 11/23/2017 [facility] HEMATOLOGY Eosinophils # 0.1 0.0 - 0.5 11/23/2017 [facility] HEMATOLOGY Basophils # 0.1 0.0 - 0.2 11/23/2017 [facility] HEMATOLOGY Monocytes # 0.8 0.0 - 0.8 11/23/2017 [facility] HEMATOLOGY Lymphocytes # 2.8 1.0 - 5.5 11/23/2017 [facility] HEMATOLOGY Segs-Bands # 6.0 1.5 - 8.1 11/23/2017 [facility] HEMATOLOGY Basophils 0.8 0.0 - 1.0 11/23/2017 [facility] HEMATOLOGY Eosinophils 1.2 0.0 - 4.0 11/23/2017 [facility] HEMATOLOGY Monocytes 8.1 2.0 - 12.0 11/23/2017 [facility] HEMATOLOGY Lymphocytes 28.6 20.0 - 40.0 11/23/2017 [facility] HEMATOLOGY Segs 61.3 45.0 - 75.0 11/23/2017 [facility] HEMATOLOGY MPV 8.9 7.4 - 10.4 11/23/2017 [facility] HEMATOLOGY WBC 9.8 3.7 - 10.4 11/23/2017 [facility] HEMATOLOGY Platelet 277 133 - 450 11/23/2017 [facility] HEMATOLOGY MCH 27.8 27.0 - 31.0 11/23/2017 [facility] HEMATOLOGY RDW 17.0 11.5 - 14.5 11/23/2017 [facility] HEMATOLOGY MCHC 33.6 32.0 - 36.0 11/23/2017 [facility] HEMATOLOGY MCV 82.7 80.0 - 98.0 11/23/2017 [facility] HEMATOLOGY Hct 38.5 36.0 - 48.0 11/23/2017 [facility] HEMATOLOGY RBC 4.66 4.20 - 5.40 11/23/2017 [facility] HEMATOLOGY Hgb 13.0 12.0 - 16.0 11/23/2017 [facility] URINE AND STOOL UA Color Ltyellow 11/23/2017 [facility] URINE AND STOOL UA Urobilinogen <=1.0 mg/dL 0.1 - 1.0 11/23/2017 [facility] URINE AND STOOL UA Sq Epi Occasional /LPF Few /LPF 11/23/2017 [facility] URINE AND STOOL UA Turbidity Clear (11/23/17 1:08 PM) Clear 11/23/2017 [facility] URINE AND STOOL UA pH 7.0 5.0 - 8.0 11/23/2017 [facility] URINE AND STOOL UA Spec Grav 1.005 <=1.030 11/23/2017 [facility] URINE AND STOOL UA Protein Negative mg/dL Negative mg/dL 11/23/2017 [facility] URINE AND STOOL UA Glucose Negative mg/dL Negative mg/dL 11/23/2017 [facility] URINE AND STOOL UA RBC 1 0 - 2 11/23/2017 [facility] URINE AND STOOL UA WBC 1 0 - 5 11/23/2017 [facility] URINE AND STOOL UA Bacteria Occasional /HPF None Seen /HPF 11/23/2017 [facility] URINE AND STOOL UA Blood Negative (11/23/17 1:08 PM) Negative 11/23/2017 [facility] URINE AND STOOL UA Nitrite Negative (11/23/17 1:08 PM) Negative 11/23/2017 [facility] URINE AND STOOL UA Leuk Est Negative (11/23/17 1:08 PM) Negative 11/23/2017 [facility] URINE AND STOOL UA Bili Negative *NA* (2/22/18 1:08 PM) Negative 11/23/2017 [facility] URINE AND STOOL UA Ketones Negative mg/dL Negative mg/dL 11/23/2017 [facility] POC CO2 POC 26 21 - 32 04/26/2017 [facility] POC Chloride POC 103 98 - 107 04/26/2017 [facility] POC Potassium POC 4.4 3.5 - 5.1 04/26/2017 [facility] POC Sodium POC 142 136 - 145 04/26/2017 [facility] POC Glucose POC 93 74 - 106 04/26/2017 [facility] POC Urea Nitrogen POC 11 7 - 18 04/26/2017 [facility] POC Creatinine POC 0.7 0.6 - 1.3 04/26/2017 [facility] POC Calcium Ionized POC 1.23 1.15 - 1.29 04/26/2017 [facility] POC Hemoglobin POC 12.9 12 - 16 04/26/2017 [facility] POC Hematocrit POC 38.0 37 - 47 04/26/2017 [facility] POC GFR, Estimated >60 mL/min/1.73 m2 04/26/2017 [facility] POC GFR, Estim, Afr-Am >60 mL/min/1.73 m2 04/26/[address] [facility] D-DIMER D-Dimer 0.25 ug/mL,FEU 04/26/2017 Values of quantitative d-Dimer less than 0.40 ug/mL FEU have been reported to
be associated with a low probability of deep vein thrombosis/pulmonary
embolism. This test alone should not be used to rule out DVT/PE.

[facility] 12 LEAD EKG 12 LEAD [facility] [place] [facility]:2017[facility]26 Pat Name: XU DUARTEDepartment: : Gender: FTechnician: WINSOME LT :[id number] Requested By: Order Number:Renita MD: Domingo Silverio Measurements IntervalsAxis Rate: 87 P:56 MS: 130QRS:52 QRSD: 79 T:56 QT: 323 QTc:391 Interpretive Statements SINUS RHYTHM LOW QRS VOLTAGE IN III, AVL, AND PRECORDIAL LEADS ABNORMAL EKG Electronically Signed On 04-27-17 14:25:50 CDT by Domingo Silverio 04/26/2017 [facility] RAPID Grp A Strep Scr Negative (03/26/15 10:22 PM) Negative 03/27/2015 [facility] CARDIAC ENZYMES CK MB Index <0.8 0.0 - 2.5 03/27/2015 [facility] CARDIAC ENZYMES Troponin-I <0.02 0.00 - 0.40 03/27/2015 [facility] CARDIAC ENZYMES Total CK 60 12 - 191 03/27/2015 [facility] CARDIAC ENZYMES CK MB <0.5 0.5 - 3.6 03/27/2015 [facility] CHEM PANEL eGFR 85 03/27/2015 <sup>1</sup>Result Comment: The eGFR is calculated using the CKD-EPI formula. In most young, healthy individuals the eGFR will be >90 mL/min/1.73m2. The eGFR declines with age. An eGFR of 60-89 may be normal in some populations, particularly the elderly, for whom the CKD-EPI formula has not been extensively validated. Use of the eGFR is not recommended in the following populations:& lt;br/>
Individuals with unstable creatinine concentrations, including patients and those with serious co-morbid conditions.

Patients with extremes in muscle mass or diet.

The data above are obtained from the National Kidney Disease Education Program (NKDEP) which additionally recommends that when the eGFR is used in patients with extremes of body mass index for purposes of drug dosing, the eGFR should be multiplied by the estimated BMI. [facility] CHEM PANEL Albumin Lvl 3.4 3.5 - 5.0 03/27/2015 [facility] CHEM PANEL Calcium Lvl 8.4 8.5 - 10.5 03/27/2015 [facility] CHEM PANEL CO2 26 24 - 32 03/27/2015 [facility] CHEM PANEL B/C Ratio 9 6 - 25 03/27/2015 [facility] CHEM PANEL AGAP 10.7 10.0 - 20.0 03/27/2015 [facility] CHEM PANEL Chloride Lvl 104 95 - 109 03/27/2015 [facility] CHEM PANEL Potassium Lvl 3.7 3.5 - 5.1 03/27/2015 [facility] CHEM PANEL Sodium Lvl 137 135 - 145 03/27/2015 [facility] CHEM PANEL Creatinine Lvl 0.9 0.5 - 1.4 03/27/2015 [facility] CHEM PANEL BUN 8 7 - 22 03/27/2015 [facility] CHEM PANEL Glucose Lvl 95 70 - 99 03/27/2015 <sup>2</sup>Interpretive Data: Adult reference range values reflect the clinical guidelines
of the [place] [employer]. [facility] CHEM PANEL ALT 14 0 - 65 03/27/2015 [facility] CHEM PANEL AST 14 0 - 37 03/27/2015 [facility] CHEM PANEL Total Protein 7.8 6.4 - 8.4 03/27/2015 [facility] CHEM PANEL Globulin 4.4 2.0 - 4.0 03/27/2015 [facility] CHEM PANEL Bili Total 0.2 0.2 - 1.3 03/27/2015 [facility] CHEM PANEL A/G Ratio 0.8 0.7 - 1.6 03/27/2015 [facility] CHEM PANEL Alk Phos 68 39 - 136 03/27/2015 [facility] ENDOCRINOLOGY S Preg Negative *NA* (03/26/15 8:53 PM) Negative 03/27/2015 [facility] HEMATOLOGY Monocytes # 0.5 0.0 - 0.8 03/27/2015 [facility] Microcyte 2+ *ABN* (03/26/15 8:53 PM) None Seen 03/27/2015 [facility] HEMATOLOGY Basophils 0.4 0.0 - 1.0 03/27/2015 [facility] HEMATOLOGY Lymphocytes # 1.3 1.0 - 5.5 03/27/2015 [facility] Segs-Bands # 6.1 1.5 - 8.1 03/27/2015 [facility] Monocytes 6.3 2.0 - 12.0 03/27/2015 [facility] HEMATOLOGY Eosinophils 0.4 0.0 - 4.0 03/27/2015 [facility] Lymphocytes 16.1 20.0 - 40.0 03/27/2015 [facility] HEMATOLOGY Segs 76.8 45.0 - 75.0 03/27/2015 [facility] MCH 22.6 27.0 - 31.0 03/27/2015 [facility] MCHC 32.0 32.0 - 36.0 03/27/2015 [facility] RDW 18.3 11.5 - 14.5 03/27/2015 [facility] Platelet 245 133 - 450 03/27/2015 [facility] MPV 9.4 7.4 - 10.4 03/27/2015 [facility] RBC 4.25 4.20 - 5.40 03/27/2015 [facility] HEMATOLOGY Hgb 9.6 12.0 - 16.0 03/27/2015 [facility] HEMATOLOGY Hct 30.1 36.0 - 48.0 03/27/2015 [facility] HEMATOLOGY MCV 70.7 80.0 - 98.0 03/27/2015 [facility] HEMATOLOGY WBC 7.9 3.7 - 10.4 03/27/2015 [facility] PTT 26.5 22.9 - 35.8 03/27/2015 <sup>4</sup>Interpretive Data: Heparin Therapeutic Range: 57 - 92 Seconds [facility] HEMATOLOGY PT 12.9 12.0 - 14.7 03/27/2015 [facility] HEMATOLOGY INR 0.97 0.85 - 1.17 03/27/2015 <sup>3</sup>Interpretive Data: RECOMMENDED RANGES FOR PROTIME INR:
2.0-3.0 for most medical and surgical thromboembolic states.
2.5-3.5 for artificial heart valves and recurrent embolism.

INR SHOULD BE USED ONLY FOR PATIENTS ON STABLE ANTICOAGULANT THERAPY. [facility] URINE AND STOOL UA Urobilinogen <=1.0 mg/dL 0.1 - 1.0 03/27/2015 [facility] URINE AND STOOL UA Mucus Many /LPF None Seen /LPF 03/27/2015 [facility] URINE AND STOOL UA Trans Epi 3 <=0 /LPF 03/27/2015 [facility] URINE AND STOOL UA RBC 10 0 - 2 03/27/2015 [facility] URINE AND STOOL UA Ketones Trace mg/dL Negative mg/dL 03/27/2015 [facility] URINE AND STOOL UA Glucose Negative mg/dL Negative mg/dL 03/27/2015 [facility] URINE AND STOOL UA Bili Negative *NA* (03/26/15 8:53 PM) Negative 03/27/2015 [facility] URINE AND STOOL UA Nitrite Negative (03/26/15 8:53 PM) Negative 03/27/2015 [facility] URINE AND STOOL UA Blood Negative (03/26/15 8:53 PM) Negative 03/27/2015 [facility] URINE AND STOOL UA Sq Epi Moderate /LPF Few /LPF 03/27/2015 [facility] URINE AND STOOL UA Leuk Est Negative (03/26/15 8:53 PM) Negative 03/27/2015 [facility] URINE AND STOOL UA WBC 23 0 - 5 03/27/2015 [facility] URINE AND STOOL UA Protein 30 mg/dL Negative mg/dL 03/27/2015 [facility] URINE AND STOOL UA Color Yellow *NA* (03/26/15 8:53 PM) Yellow 03/27/2015 [facility] URINE AND STOOL UA Turbidity Marked *ABN* (03/26/15 8:53 PM) Clear 03/27/2015 [facility] URINE AND STOOL UA pH 7.0 5.0 - 8.0 03/27/2015 [facility] URINE AND STOOL UA Spec Grav 1.024 <=1.030 03/27/2015 [facility] BLOOD BANK RESULTS Antibody Scrn Negative (01/25/14 1:23 AM) 01/25/2014 [facility] BLOOD BANK RESULTS ABO/Rh O POS 01/25/2014 [facility] ELECTROLYTES AGAP 9.7 10.0 - 20.0 01/25/2014 [facility] ELECTROLYTES B/C Ratio 14 - 25 01/25/2014 [facility] ELECTROLYTES Globulin 4.0 2.0 - 4.0 01/25/2014 [facility] ELECTROLYTES A/G Ratio 0.9 0.7 - 1.6 01/25/2014 [facility] ELECTROLYTES eGFR 86 01/25/2014 <sup>1</sup>Result Comment: The eGFR is calculated using the CKD-EPI formula. In most young, healthy individuals the eGFR will be >90 mL/min/1.73m2. The eGFR declines with age. An eGFR of 60-89 may be normal in some populations, particularly the elderly, for whom the CKD-EPI formula has not been extensively validated. Use of the eGFR is not recommended in the following populations:& lt;br/>
Individuals with unstable creatinine concentrations, including patients and those with serious co-morbid conditions.

Patients with extremes in muscle mass or diet.

The data above are obtained from the National Kidney Disease Education Program (NKDEP) which additionally recommends that when the eGFR is used in patients with extremes of body mass index for purposes of drug dosing, the eGFR should be multiplied by the estimated BMI. [facility] ELECTROLYTES Glucose Lvl 91 70 - 99 01/25/2014 <sup>2</sup>Interpretive Data: Adult reference range values reflect the clinical guidelines
of the [place] [employer]. [facility] ELECTROLYTES Sodium Lvl 140 135 - 145 01/25/2014 [facility] ELECTROLYTES Potassium Lvl 3.7 3.5 - 5.1 01/25/2014 [facility] ELECTROLYTES Creatinine Lvl 0.9 0.5 - 1.4 01/25/2014 [facility] ELECTROLYTES Total Protein 7.7 6.4 - 8.4 01/25/2014 [facility] ELECTROLYTES Calcium Lvl 9.0 8.5 - 10.5 01/25/2014 [facility] ELECTROLYTES CO2 27 24 - 32 01/25/2014 [facility] ELECTROLYTES Chloride Lvl 107 95 - 109 01/25/2014 [facility] ELECTROLYTES BUN 13 7 - 22 01/25/2014 [facility] ELECTROLYTES ALT 13 0 - 65 01/25/2014 [facility] ELECTROLYTES Albumin Lvl 3.7 3.5 - 5.0 01/25/2014 [facility] ELECTROLYTES Alk Phos 64 39 - 136 01/25/2014 [facility] ELECTROLYTES Bili Total 0.3 0.2 - 1.3 01/25/2014 [facility] ELECTROLYTES AST 8 0 - 37 01/25/2014 [facility] ENDOCRINOLOGY S Preg Negative *NA* (01/25/14 1:23 AM) Negative 01/25/2014 [facility] HEMATOLOGY Lymphocytes # 1.8 1.0 - 5.5 01/25/2014 [facility] HEMATOLOGY Segs-Bands # 3.6 1.5 - 8.1 01/25/2014 [facility] HEMATOLOGY Basophils # 0.0 0.0 - 0.2 01/25/2014 [facility] HEMATOLOGY Eosinophils # 0.1 0.0 - 0.5 01/25/2014 [facility] HEMATOLOGY Monocytes # 0.6 0.0 - 0.8 01/25/2014 [facility] HEMATOLOGY Lymphocytes 29.0 20.0 - 40.0 01/25/2014 [facility] HEMATOLOGY Segs 58.6 45.0 - 75.0 01/25/2014 [facility] HEMATOLOGY Basophils 0.0 0.0 - 1.0 01/25/2014 [facility] HEMATOLOGY Eosinophils 1.8 0.0 - 4.0 01/25/2014 [facility] HEMATOLOGY Monocytes 10.6 2.0 - 12.0 01/25/2014 [facility] HEMATOLOGY MCHC 33.8 32.0 - 36.0 01/25/2014 [facility] HEMATOLOGY MCV 78.1 81.0 - 99.0 01/25/2014 [facility] HEMATOLOGY MCH 26.4 27.0 - 31.0 01/25/2014 [facility] HEMATOLOGY Hct 30.9 36.0 - 48.0 01/25/2014 [facility] MPV 9.5 7.4 - 10.4 01/25/2014 [facility] Platelet 243 133 - 450 01/25/2014 [facility] RDW 18.5 11.5 - 14.5 01/25/2014 [facility] Hgb 10.5 12.0 - 16.0 01/25/2014 [facility] RBC 3.96 4.20 - 5.40 01/25/2014 [facility] WBC 6.1 3.7 - 10.4 01/25/2014 [facility] Pathology Reports No Data Provided for This Section Diagnostic Reports Report Value Date Source Chest CTA w Abd/Pelvis w IV contrast CT Clinical Indication: Chest and abdominal pain sp gastric bypass. Comparison: CT of the abdomen and pelvis performed 11/23/2017. TECHNIQUE: Sequential trans-axial images were obtained thru the chest and upper abdomen after administration of iodinated contrast. Coronal, 3-D MIP and sagittal reconstructions were obtained. Helical CT imaging of the abdomen and pelvis was performed after injection of IV contrast, from the diaphragm through the symphysis with multiplanar reformations obtained. IV CONTRAST: 100 mL of Omnipaque was used for the exam. GI CONTRAST: No oral contrast was administered. CT imaging performed at this location utilizes radiation dose optimization techniques which include one or more of the following: -Automated exposure control -Adjustment of the mA and/or kV according to patient size -Use of iterative reconstruction technique CT Radiation Dose DLP 2243.85 mGy-cm FINDINGS: CTA CHEST: LUNG PARENCHYMA AND PLEURA: Dependent atelectasis is seen at the lung bases. There is no focal lung consolidation, pleural effusion or pneumothorax. AIRWAY: The central airway is patent. MEDIASTINUM: No significant mediastinal lymphadenopathy. HEART: There are no significant coronary artery calcifications. The cardiac chambers are unremarkable. There is no pericardial effusion. VASCULAR STRUCTURES: There are no acute pulmonary emboli. The main, right and left pulmonary arteries are within normal limits. The great vessels are unremarkable. The thoracic aorta demonstrates no aneurysmal dilatation nor aortic dissection. The superior vena cava is unremarkable. OSSEOUS STRUCTURES: There are no definite significant osseous abnormalities seen. CT ABDOMEN/PELVIS: LIVER: The liver parenchyma is normal in appearance without masses or intrahepatic biliary ductal dilatation. The portal vein is normal in caliber. BILIARY TREE: The common bile duct is normal in caliber without evidence of filling defects. GALLBLADDER: The gallbladder is present. PANCREAS: The pancreas is unremarkable. The pancreatic duct is normal in caliber. SPLEEN: The spleen is normal in size and there are no parenchymal abnormalities. ADRENALS: The right adrenal gland is unremarkable. The left adrenal gland is unremarkable. KIDNEYS: The kidneys demonstrates normal contrast enhancement. There are no masses. There is no evidence of renal or ureteral calculi. There is no evidence of hydronephrosis. BOWEL: There are postsurgical changes from gastric bypass surgery. There is no evidence of bowel obstruction. Contrast is seen within the small bowel loops and colon APPENDIX: The appendix is not visualized but there are no secondary signs of acute appendicitis. PELVIS: There is a 4.7 x 5.5 cm cyst within the right adnexa. The uterus and left ovary are unremarkable. The urinary bladder is underdistended. PERITONEUM: There is trace pelvic free fluid. No free air is seen. SOFT TISSUES: There is subcutaneous soft tissue swelling and fat stranding along the intra-abdominal wall, which is most likely due to recent surgery. LYMPH NODES: There is no evidence of mesenteric, retroperitoneal, or inguinal lymphadenopathy. VASCULATURE: The abdominal aorta is normal in caliber. The branches of the abdominal aorta are widely patent. MUSCULOSKELETAL: The visualized bony skeleton is unremarkable. IMPRESSION: 1. Postsurgical changes from gastric bypass surgery. No evidence of bowel obstruction. 2. A 4.7 x 5.5 cm right adnexal cyst, which likely represent right ovarian cyst. If indicated, this can be further evaluated with pelvic ultrasound. 3. No evidence of acute pulmonary embolism. SL: [id number]-M 07/17/2018 [facility] 1view DX Clinical Indication: - cp Comparison: 07/13/2018 FINDINGS: Single frontal radiograph of the chest is performed. Heart size is within normal limits. Mediastinal contours are unremarkable. Lungs are clear without infiltrate or mass. No pleural effusion or pneumothorax. No acute osseous abnormality. IMPRESSION: 1. No radiographic evidence for acute process in the chest. SL: [id number] 07/17/2018 [facility] 1view DX EXAM: XR CHEST 1 VIEW DATE: 07/13/2018 3:40 AM CDT INDICATION: - chest pain COMPARISON: March 26, 2015 TECHNIQUE: AP chest IMPRESSION: Diminished lung volumes laterally with prominent lung vasculature. Otherwise, lungs are clear. Costophrenic recesses are sharp. Cardiomediastinal silhouette within normal limits. No acute osseous abnormalities. 07/13/2018 [facility] Upper GI Series w water soluble DX EXAM: FLUOROSCOPY OMNIPAQUE UPPER GI WITH CONTRAST DATE: 07/12/2018 at 8:55 AM CDT INDICATION: POD 1 s/p gastric bypass. COMPARISON: None. TECHNIQUE: Bariatric Upper GI Protocol: Limited upper GI examination was performed by giving the patient two 20 cc swallows of Omnipaque 350 orally. Frontal addiction professional and multiple view post contrast radiographs were obtained. DISCUSSION: Preliminary radiograph: Gas distended colon noted. The visualized lungs are clear. Postoperative gastric/bowel loops: Oral contrast readily enters the gastric pouch and proximal small bowel without evidence of obstruction or leak. IMPRESSION: No evidence of proximal obstruction or leak. 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 COMPARISON: None. TECHNIQUE: Multiplanar grayscale and color Doppler ultrasound of the pelvis were obtained transabdominally. Transvaginal imaging was subsequently performed for better evaluation of the endometrium and adnexal regions. FINDINGS: The uterus is anteverted in position and measures 11.0 x 4.1 x 5.3 cm. The uterine myometrium is normal in echotexture. The bladder is grossly unremarkable. The endometrial stripe is normal in appearance and measures 11 mm in thickness. A few nabothian cysts are visualized. The right and left ovaries are normal in appearance. A mildly complex physiologic left ovarian cyst measures 1.3 x 0.9 x 1.3 cm. Doppler evaluation of the ovaries demonstrate normal vascularity. The right ovary measures 3.5 x 2.6 x 2.2 cm. The left ovary measures 3.5 x 1.8 x 1.4 cm. Trace free fluid is noted in the pelvic cul-de-sac. IMPRESSION: Unremarkable pelvic ultrasound. SL: [id number] 11/23/2017 [facility] ED Abdomen/Pelvis IV contrast only CT Clinical Indication: Left lower quadrant pain. Comparison: None. TECHNIQUE: Helical imaging was performed from diaphragm through the symphysis with multiplanar reformations obtained. IV CONTRAST: 100 cc Omnipaque. GI CONTRAST: None CT Radiation Dose: ENK=1587 mGy-cm FINDINGS: LOWER CHEST: The visualized lung bases are clear. LIVER: Unremarkable. GALLBLADDER: Unremarkable. INTRAHEPATIC BILE DUCT AND EXTRAHEPATIC BILE DUCT: Unremarkable. PANCREAS: Unremarkable. SPLEEN: Unremarkable. ADRENALS: Unremarkable. KIDNEYS AND URETERS: Unremarkable. The lack of oral contrast limits evaluation of the hollow viscus structures. STOMACH: Status post gastric band. BOWEL: The small bowel loops in the abdomen and pelvis appear unremarkable. The colonic loops in the abdomen and pelvis appear unremarkable. APPENDIX: Not well seen on the exam. PERITONEUM AND RETROPERITONEUM: No free air. There is no aortic aneurysm or dissection. LYMPH NODES: Unremarkable. PELVIS: No pelvic mass or adenopathy. BLADDER: Unremarkable. OSSEOUS STRUCTURES: No acute abnormality seen. SOFT TISSUES: Unremarkable. IMPRESSION: No definitive CT evidence of acute pathology. Status post gastric band. SL: [id number] 11/23/2017 [facility] Upper GI series DX Upper GI series DX CLINICAL HISTORY: fl time 26 secs, dose 64.83 mGy, Dr. Ugalde - K21.9 Gastro- esophageal reflux disease without esophagitis. COMPARISON: None TECHNIQUE: Thin barium was administered with the patient in the upright position and fluoroscopic and video images performed in AP and oblique projections. Collateral Clerk study demonstrates mild flattening of the angle related to the position of the lap band catheter. Phi angle is calculated at 65 degrees (normal range 4 - 58 degrees) FINDINGS: Patient ingested single contrast barium without difficulty and there is no significant delay in passage of barium from the oropharynx into the distal esophagus. No significant delay in passage of barium past the lap band catheter. There is mild dilation of the proximal pouch. IMPRESSION: No definite evidence to suggest lap band slippage. The angle of the lap band is mildly flattened but there is prompt passage of contrast into the stomach. Mild dilation of the proximal pouch is noted. SL: [id number] 07/03/2017 [facility] XRAY CHEST 2 VIEWS IMPRESSION:No acute pleural pulmonary abnormality. This [facility] radiology report is a preliminary resident dictation untilfinalized by an attending.Changes to this preliminary report may occurin an additional preliminary or finalized version. Dictated By: Joyce Massey MD, 04/26/2017 9:49 AM I have reviewed the study and agree with the findings in this report. Signed By: Belkis Patrick MD, 04/26/2017 9:58 AM EXAM: XR CHEST 2 VIEWS DATE: 04/26/2017 9:38 AM INDICATION: sob. COMPARISON: None TECHNIQUE: PA and lateral chest radiographs FINDINGS: Lines, tubes and hardware: Metallic rings are seen overlying thepatient's chest. Lungs and pleura: No pulmonary or pleural based abnormality isidentified. Pulmonary vascularity is normal. Heart and mediastinum: The heart size is normal. The mediastinalcontours are normal. Bones: No acute bony abnormality is identified. Interface, Rad/Mammog In - 04/26/2017 10:03 AM CDTEXAM: XR CHEST 2 VIEWS DATE: 04/26/2017 9:38 AM INDICATION: sob. COMPARISON: None TECHNIQUE: PA and lateral chest radiographs FINDINGS: Lines, tubes and hardware: Metallic rings are seen overlying the patient's chest. Lungs and pleura: No pulmonary or pleural based abnormality is identified. Pulmonary vascularity is normal. Heart and mediastinum: The heart size is normal. The mediastinal contours are normal. Bones: No acute bony abnormality is identified. IMPRESSION: No acute pleural pulmonary abnormality. This [facility] radiology report is a preliminary resident dictation until finalized by an attending. Changes to this preliminary report may occur in an additional preliminary or finalized version. Dictated By: Joyce Massey MD, 04/26/2017 9:49 AM I have reviewed the study and agree with the findings in this report. Signed By: Belkis Patrick MD, 04/26/2017 9:58 AM 04/26/[address] [facility] Brain wo contrast CT CT head without contrast. CLINICAL INDICATION: Weakness. COMPARISON: [None]. TECHNIQUE: Multiple contiguous axial images of the brain were performed without IV contrast. FINDINGS: Ventricles and subarachnoid spaces are appropriate for age. No acute territorial infarction or intracranial hemorrhage. No extra-axial fluid collection. Barker-white distinction is preserved. No mass, mass-effect, or midline shift. Visualized paranasal sinuses are unremarkable. IMPRESSION: No acute intracranial process detected. MRI brain if indicated. SL: 03/26/2015 [facility] Chest 1view DX Chest one view: Exam reason: See Clinic Indication Chest pain The lungs are clear. The cardiomediastinal silhouette is normal accentuated by AP portable technique. No consolidation or pleural fluid collection is noted. IMPRESSION: No acute cardiopulmonary process noted SL:03/26/2015 [facility] Consultation Notes No Data Provided for This Section Discharge Summaries No Data Provided for This Section History and Physicals No Data Provided for This Section Vital Signs Vital Sign Value Date Comments Source Temperature Oral (F) 98.1 F 07/18/2018 [facility] Systolic (mm Hg) 110 07/18/2018 [facility] Diastolic (mm Hg) 67 07/18/2018 [facility] Respitory Rate 17 07/18/2018 [facility] Respitory Rate 15 07/18/2018 [facility] Systolic (mm Hg) 113 07/18/2018 [facility] Diastolic (mm Hg) 74 07/18/2018 [facility] Respitory Rate 21 07/18/2018 [facility] Temperature Oral (F) 98.0 F 07/18/2018 [facility] Systolic (mm Hg) 139 07/18/2018 [facility] Diastolic (mm Hg) 85 07/18/2018 [facility] BMI Calculated 43.36 07/18/2018 [facility] Height 154.94 cm 07/18/2018 [facility] Weight 104.091 07/18/2018 [facility] Temperature Oral (F) 98.2 F 07/18/2018 [facility] Heart Rate 94 07/18/2018 [facility] Heart Rate 88 07/13/2018 [facility] Respitory Rate 16 07/13/2018 [facility] Systolic (mm Hg) 110 07/13/2018 [facility] Diastolic (mm Hg) 60 07/13/2018 [facility] Temperature Oral (F) 98.3 F 07/13/2018 [facility] Temperature Oral (F) 98.4 F 07/13/2018 [facility] Respitory Rate 16 07/13/2018 [facility] Heart Rate 89 07/13/2018 [facility] Systolic (mm Hg) 107 07/13/2018 [facility] Diastolic (mm Hg) 68 07/13/2018 [facility] Systolic (mm Hg) 102 07/13/2018 [facility] Diastolic (mm Hg) 70 07/13/2018 [facility] Respitory Rate 17 07/13/2018 [facility] Heart Rate 68 07/13/2018 [facility] Temperature Oral (F) 98.2 F 07/13/2018 [facility] Height 154.94 cm 07/11/2018 [facility] Weight 107.727 07/11/2018 [facility] BMI Calculated 44.87 07/11/2018 [facility] BMI Calculated 45.82 07/05/2018 [facility] Weight 110 07/05/2018 [facility] Height 154.94 cm 07/05/2018 [facility] Systolic (mm Hg) 100 05/17/2018 [facility] Diastolic (mm Hg) 56 05/17/2018 [facility] Respitory Rate 20 05/17/2018 [facility] Systolic (mm Hg) 110 05/17/2018 [facility] Diastolic (mm Hg) 68 05/17/2018 [facility] Respitory Rate 21 05/17/2018 [facility] Systolic (mm Hg) 115 05/17/2018 [facility] Diastolic (mm Hg) 72 05/17/2018 [facility] Respitory Rate 16 05/17/2018 [facility] Temperature Oral (F) 98.0 F 05/15/2018 [facility] Heart Rate 82 05/15/2018 [facility] Weight 106.091 05/15/2018 [facility] BMI Calculated 44.19 05/15/2018 [facility] Height 154.94 cm 05/15/2018 [facility] Systolic (mm Hg) 125 11/24/2017 [facility] Diastolic (mm Hg) 80 11/24/2017 [facility] Heart Rate 84 11/24/2017 [facility] Respitory Rate 18 11/24/2017 [facility] Systolic (mm Hg) 120 11/24/2017 [facility] Diastolic (mm Hg) 80 11/24/2017 [facility] Respitory Rate 18 11/24/2017 [facility] Heart Rate 75 11/24/2017 [facility] Systolic (mm Hg) 137 11/23/2017 [facility] Diastolic (mm Hg) 88 11/23/2017 [facility] Heart Rate 82 11/23/2017 [facility] Respitory Rate 16 11/23/2017 [facility] BMI Calculated 40.71 11/23/2017 [facility] Temperature Oral (F) 98.5 F 11/23/2017 [facility] Weight 97.727 11/23/2017 [facility] Height 154.94 cm 11/23/2017 [facility] Systolic (mm Hg) 136 04/26/[address] [facility] Diastolic (mm Hg) 86 04/26/[address] [facility] Heart Rate 90 04/26/[address] [facility] Temperature Oral (F) 36.78 Lien 04/26/[address] [facility] Respitory Rate 18 04/26/[address] [facility] Weight 94.394 04/26/[address] [facility] Systolic (mm Hg) 125 03/27/2015 [facility] Diastolic (mm Hg) 77 03/27/2015 [facility] Respitory Rate 18 03/27/2015 [facility] Temperature Oral (F) 98.6 F 03/27/2015 [facility] Heart Rate 81 03/27/2015 [facility] Temperature Oral (F) 98.6 F 03/27/2015 [facility] Systolic (mm Hg) 127 03/27/2015 [facility] Diastolic (mm Hg) 84 03/27/2015 [facility] Heart Rate 82 03/27/2015 [facility] Respitory Rate 18 03/27/2015 [facility] Systolic (mm Hg) 136 03/27/2015 [facility] Diastolic (mm Hg) 69 03/27/2015 [facility] Respitory Rate 20 03/27/2015 [facility] Heart Rate 104 03/27/2015 [facility] Temperature Oral (F) 99.7 F 03/27/2015 [facility] Weight 84.091 03/27/2015 [facility] BMI Calculated 35.03 03/27/2015 [facility] Height 154.94 cm 03/27/2015 [facility] Temperature Oral (F) 97.9 F 01/25/2014 [facility] Heart Rate 71 01/25/2014 [facility] Respitory Rate 16 01/25/2014 [facility] Systolic (mm Hg) 115 01/25/2014 [facility] Diastolic (mm Hg) 74 01/25/2014 [facility] Systolic (mm Hg) 127 01/25/2014 [facility] Diastolic (mm Hg) 83 01/25/2014 [facility] Respitory Rate 18 01/25/2014 [facility] Heart Rate 77 01/25/2014 [facility] Weight 81.818 01/25/2014 [facility] Temperature Oral (F) 98.8 F 01/25/2014 [facility] Respitory Rate 18 01/25/2014 [facility] Systolic (mm Hg) 144 01/25/2014 [facility] Diastolic (mm Hg) 90 01/25/2014 [facility] Heart Rate 70 01/25/2014 [facility] Encounters Location Location Details Encounter Type Encounter Number Reason For Visit Attending Provider ADM Date DC Date Status Source [facility] [id number] Arturo Bell 01/25/2014 01/25/2014 [facility] [id number] Quique Thompson 03/27/2015 03/27/2015 [facility] Emergency Center ([id number]) [facility] Emergency [id number] SOB (shortness of breath) Andrey Drake MD 04/26/2017 04/26/2017 [facility] Recurring [id number] Tutu Tao 07/03/2017 08/02/2017 [facility] Emergency [id number] Ronen Reynosoff 11/23/2017 11/24/2017 [facility] Recurring [id number] Obonoruma Ekhaese 04/20/2018 05/20/2018 [facility] Outpatient [id number] O[place]oruma Ekhaese 04/20/2018 04/20/2018 [facility] Recurring [id number] O[place]or[place] Ekhaese 04/24/2018 05/24/2018 [facility] Bedded Outpatient [id number] O[place]or[place] Ekhaese 05/17/2018 05/17/2018 [facility] PreAdmit [id number] [place] Ekhaese 06/15/2018 06/15/2018 [facility] Inpatient [id number] Obonoruma Ekhaese 07/11/2018 07/13/[address] [facility] Emergency [id number] Hanane Alstonqi 07/18/2018 07/18/2018 [facility] Procedures Procedure Code Date Perfomer Comments Source section [id number] [facility] Laparoscopic adjustable gastric banding [id number] [facility] Tonsillectomy [id number] [facility] Abdominoplasty and liposuction [id number] [facility] Bilateral tubal ligation [id number] [facility] Breast reduction, bilateral [id number] [facility] Excision of lesion of labia [id number] [facility] Abdominoplasty and liposuction [id number] [facility] Bilateral tubal ligation [id number] [facility] Breast reduction, bilateral [id number] [facility] section [id number] [facility] Excision of lesion of labia [id number] [facility] Laparoscopic adjustable gastric banding [id number] [facility] Tonsillectomy [id number] [facility] Assessment and Plan Assessment and Plan Date Source Extracted from:Title: Progress Note Author: Olga Werner DO Date: 07/12/18 33 yo F with PMH of HTN and morbid obesity now POD 1 s/p band removal and conversion to gastric bypass. Overall she is doing well. UGI study shows passage with no evidence of proximal obstruction or leak. - bariatric CLD - cont BR - ambulate - IS 10x/hr - DVT: lvx - likely d/c tomorrow Morbid obesity Ordered: Diet Bariatric, 07/12/18 10:26:00 CDT, Bariatric Clear Liquid Other complications of gastric band procedure Ordered: Diet Bariatric, 07/12/18 10:26:00 CDT, Bariatric Clear Liquid S/P gastric bypass Addendum by Tutu Tao DO on 07/13/2018 10:48 CDT TEACHING ATTESTATION: I personally saw this patient and I agree with the resident's note with the following additions. UGI with contrast study ordered. Nimco Tao D.O Extracted from:Title: APMS Consult Note Author: Akilah Reyes MD Date: 07/12/18 Basic Information Referral source Reason for consultation: Complex Acute Pain CC: Abdominal pain Consulting physician: Eden History of Present Illness Pt is a 33 y/o female w PMH of morbid obesity who presented for gastric band malfuntion and ultimately underwent lap gastric band removal and revision to gastric bypass on 07/11. Post operatively patient underwent subcostal TAP blocks bilaterally SS. Acute pain was consulted for pain management. Today patient is up out of bed stating she is not having any pain. Patient states her pain is well controlled on her current regimen and she denies any nausea or vomiting. Histories Past Medical History: Active Gastric band malfunction ([id number]) Family History: Hypertension Mother Type 2 diabetes mellitus Mother Heart attack Grandparent Stroke (CVA) Mother Cancer, Colon Grandparent Procedure history: Laparoscopic adjustable gastric banding (SNOMED CT 0690626372). section (SNOMED CT 56581507). Tonsillectomy (SNOMED CT 159764868). Bilateral tubal ligation (SNOMED CT 730743800). Excision of lesion of labia (SNOMED CT 6008252840). Abdominoplasty and liposuction (SNOMED CT 063271129). Breast reduction, bilateral (SNOMED CT 384785905). 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 Health Status Allergies: Allergies (1) Active Reaction vancomycin None Documented Current medications.Problem list. Review of Systems Constitutional: Negative. Cardiovascular: Negative. Ear/Nose/Mouth/Throat: Negative. Respiratory: Negative. Gastrointestinal: Negative. Musculoskeletal: Negative. Neurologic: Negative. Psychiatric: Negative. Endocrine: Negative. Hematology/Lymphatics: Negative. Physical Examination VS/Measurements Vital Signs (last 24 hrs) Last Charted Temp Oral 98.9 DegF (JUL 12 07:30) Heart Rate Peripheral 79 bpm (JUL 12:30) Resp Rate 16 BRMIN (JUL 12 03:59) SBP 117 mmHg (JUL 12:30) DBP 64 mmHg (JUL 12:30) SpO2 95 % (JUL 12:30) General: Alert and oriented, No acute distress. Eye: Pupils are equal, round and reactive to light, Extraocular movements are intact. HENT: Normocephalic. Neck: Supple. Respiratory: Respirations are non-labored. Cardiovascular: Normal rate. Musculoskeletal Normal range of motion. Normal strength. Integumentary: Warm, Dry. Neurologic: Alert, Oriented, Normal sensory. Cognition and Speech: Oriented, Speech clear and coherent. Psychiatric: Cooperative, Appropriate mood and affect. Review / Management Results review: Labs (Last four charted values) WBC H 14.3 (JUL 12) 8.7 (JUL 05) Hgb L 11.2 (JUL 12) 13.1 (JUL 05) Hct L 33.8 (JUL 12) 39.7 (JUL 05) Plt 210 (JUL 12) 352 (JUL 05) Na 137 (JUL 12) 140 (JUL 05) K 4.3 (JUL 12) 4.4 (JUL 05) CO2 26 (JUL 12) 30 (JUL 05) Cl 103 (JUL 12) 103 (JUL 05) Cr 0.64 (JUL 12) 0.79 (JUL 05) BUN L 6 (JUL 12) 13 (JUL 05) Glucose Random H 109 (JUL 12) L 64 (JUL 05) Mg L 1.7 (JUL 12) Phos 3.1 (JUL 12) Ca L 8.2 (JUL 12) 9.0 (JUL 05) PT 13.2 (JUL 05) INR 1.00 (JUL 05) PTT 27.3 (JUL 05) . Chest x-ray results ECG interpretation Impression and Plan Education and Follow-up: Counseled: Regarding treatment, Regarding medications. Pt is a 33 y/o female w PMH of morbid obesity who presented for gastric band malfuntion and ultimately underwent lap gastric band removal and revision to gastric bypass on 07/11. Post operatively patient underwent subcostal TAP blocks bilaterally SS. - Patient is doing well today and states her pain is well controlled on PO pain medication - Transitioned IV tylenol to PO Tylenol - Primary team to manage pain medication at this time APMS will sign off at this time, please call with any questions or concerns [phone] Addendum by Jorge Babb MD on 07/12/2018 16:02 TEACHING PHYSICIAN ADDENDUM: I saw and personally examined this patient and discussed the plan of care with this resident. I have reviewed the note below and agree with the history, examination findings and the plan of care. 07/13/2018 [facility] Plan of Care Plan of Care Date Source IMM Influenza Seasonal Jul to November (>/=19 yrs) 07/02/[address] [facility] Cervical Cancer Scrn (3 Yrs) [address] [facility] Social History Social History Date Source Social History TypeResponse Substance Abuse Use: None. Alcohol Current, Type Liquor. Frequency: 1-2 times per month. 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 Alcohol Current, Type Liquor. Frequency: 1-2 times per month. 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 Family History No Data Provided for This Section Advance Directives No Data Provided for This Section Functional Status No Data Provided for This Section
--- OUTSIDE RECORDS SUMMARY | 2019-04-15 16:00 | XMS REPORT | Summary of Care ---
Author Author [facility] Organization [facility] Address Unknown Phone Unavailable Encounter HQ Dana(REJI) [id number] Date(s): 07/11/18 - 07/13/18 [facility] [address] [facility] provided by [employer] [facility] [employer] [place] [address]- Encounter Diagnosis Other complications of gastric band procedure (Final) - 07/20/18 Body mass index (BMI) 40.0-44.9, adult (Final) - Surgical operation with implant of artificial internal device as the cause of ab normal reaction of the patient, or of later complication, without mention of mis adventure at the time of the procedure (Final) - Morbid (severe) obesity due to excess calories (Final) - Essential (primary) hypertension (Final) - Discharge Disposition: Home or Self Care Attending Physician: Tutu Tao DO Admitting Physician: Tutu Tao DO Referring Physician: Tutu Tao DO Vital Signs 1 2 3 Most recent to oldest [Reference Range]: 154.94 cm (07/11/18 10:01 AM) 154.94 cm (07/05/18 2:36 PM) Height 98.3 DegF (07/13/18 11:52 AM) 98.4 DegF (07/13/18 7:55 AM) 98.2 DegF (07/13/18 3:22 AM) Temperature Oral [96.4-99.1 DegF] 110/60 mmHg (07/13/18 11:52 AM) 107/68 mmHg (07/13/18 7:55 AM) 102/70 mmHg (07/13/18 3:22 AM) Blood Pressure [90-140/60-90 mmHg] 16 BRMIN (07/13/18 11:52 AM) 16 BRMIN (07/13/18 7:55 AM) 17 BRMIN (07/13/18 3:22 AM) Respiratory Rate [14-20 BRMIN] 88 bpm (07/13/18 11:52 AM) 89 bpm (07/13/18 7:55 AM) 68 bpm (07/13/18 3:22 AM) Peripheral Pulse Rate [60-100 bpm] 107.727 kg (07/11/18 10:01 AM) 110 kg (07/05/18 2:36 PM) Weight 44.87 m2 (07/11/18 10:01 AM) 45.82 m2 (07/05/18 2:36 PM) Body Mass Index Problem List Condition Effective Dates Status Health Status Informant Gastric band Active malfunction(Confirme d) Allergies, Adverse Reactions, Alerts Substance Reaction Severity Status vancomycin Active Medications acetaminophen 1,000 mg, 100 mL, Route: IVPB, Drug form: INJ, Q6H, Dosing Weight 107.727, kg, S tart date: 07/11/18 19:31:00 CDT, Duration: 30 day, Stop date: 08/10/18 16:00:00 COMPOSITION FLOOR SETTER Notes: Infuse over 15 minutesDo not exceed 4gm/day of acetaminophen MEDICAT ION WASTE Product Size: 1000 mgProduct Wasted: ___ mg Start Date: 07/11/18 Stop Date: 07/12/18 Status: Discontinued acetaminophen 1,000 mg, 31.23 mL, Route: PO, Drug form: LIQ, Q6Hnow, Dosing Weight 107.727, kg , Start date: 07/12/18 11:00:00 CDT, Duration: 30 day, Stop date: 08/11/18 5:00: 00 COMPOSITION FLOOR SETTER Notes: Max twufpmgqsndne=5734cg/day (4 gm/day). (Same as: Tylenol) Start Date: 07/12/18 Stop Date: 07/13/18 Status: Discontinued acetaminophen (ANES) 10 mg Route: IV, Drug form: INJ, Start date: 07/11/18 15:38:00 CDT, Stop date: 8 16:38:00 CDT Start Date: 07/11/18 Stop Date: 07/11/18 Status: Completed ANES dexamethasone 4 mg, 1 mL, Route: IVP, Drug form: INJ, ONCE, Dosing Weight 107.727, kg, PRN Christian sea & Vomiting, Start date: 07/11/18 14:09:00 CDT Notes: Concentration: 4mg/ml Start Date: 07/11/18 Stop Date: 07/11/18 Status: Discontinued ANES flumazenil 0.2 mg, 2 mL, Route: IVP, Drug form: INJ, PRN, Dosing Weight 107.727, kg, PRN Be nzodiazepine Reversal, Initial dose, Start date: 07/11/18 14:09:00 CDT, Duration : 30 day, Stop date: 08/10/18 13:08:00 COMPOSITION FLOOR SETTER Notes: (Same as: Romazicon) Start Date: 07/11/18 Stop Date: 07/11/18 Status: Discontinued ANES HYDROmorphone 0.5 mg, 0.25 mL, Route: IVP, Drug form: INJ, Q5Min, Dosing Weight 107.727, kg, P RN Pain Score 7-10, Start date: 07/11/18 14:09:00 CDT, Duration: 4 doses or time s, Stop date: 07/12/18 0:00:00 CDT Notes: Same as Dilaudid Start Date: 07/11/18 Stop Date: 07/11/18 Status: Discontinued ANES ketOROLAC 30 mg, 1 mL, Route: IVP, Drug form: INJ, ONCE, Dosing Weight 107.727, kg, Start date: 07/11/18 14:09:00 CDT, Stop date: 07/11/18 14:09:00 CDT Notes: (Same as:Toradol) IV bolus must be given >15 seconds. Give IM administration slowly and deeply into the muscle.Not for use > 4 days MEDICATION WASTE Product Size: 30 mgProduct Wasted: ___ mg Start Date: 07/11/18 Stop Date: 07/11/18 Status: Completed ANES naloxone 0.4 mg, 1 mL, Route: IVP, Drug form: INJ, Q2MIN, Dosing Weight 107.727, kg, PRN Narcotic Reversal, Start date: 07/11/18 14:09:00 CDT, Duration: 8 doses or times , Stop date: 07/12/18 0:00:00 CDT Notes: Same as Narcan Start Date: 07/11/18 Stop Date: 07/11/18 Status: Discontinued ANES ondansetron 4 mg, 2 mL, Route: IVP, Drug form: INJ, ONCE, Dosing Weight 107.727, kg, PRN Christian sea & Vomiting, Start date: 07/11/18 14:09:00 CDT Notes: (Same as: Zofran) MEDICATION WASTE Product Size: 4 mgProduct Was araceli: ___ mg Start Date: 07/11/18 Stop Date: 07/11/18 Status: Discontinued ANES promethazine 6.25 mg, 0.25 mL, Route: IVPB, Drug form: INJ, ONCE, Dosing Weight 107.727, kg, PRN Nausea & Vomiting, Start date: 07/11/18 14:09:00 CDT Notes: Do not give IV push. (Same as: Phenergan) Start Date: 07/11/18 Stop Date: 07/11/18 Status: Discontinued cefOXitin (ANES) Route: IV, Drug form: INJ, ONCE, Stop date: 07/11/18 12:23:00 CDT Start Date: 07/11/18 Stop Date: 07/11/18 Status: Completed cefOXitin (ANES) Route: IV, Drug form: INJ, ONCE, Stop date: 07/11/18 16:14:00 CDT Start Date: 07/11/18 Stop Date: 07/11/18 Status: Completed CeleBREX 400 mg, Route: PO, Drug form: CAP, ONCE, Dosing Weight 107.727, kg, Start date: 07/11/18 10:18:00 CDT, Stop date: 07/11/18 10:18:00 CDT Start Date: 07/11/18 Stop Date: 07/11/18 Status: Completed celecoxib 200 mg, 1 cap, Route: PO, Drug form: CAP, [id number], Dosing Weight 107.727, kg, St art date: 07/11/18 13:00:00 CDT, Duration: 30 day, Stop date: 08/10/18 1:00:[address] Notes: NSAID. Please check indication. Not for seizure. (Same As: CeleBREX) Start Date: 07/11/18 Stop Date: 07/13/18 Status: Discontinued dexamethasone (ANES) Route: IV, Drug form: INJ, ONCE, Stop date: 07/11/18 16:09:00 CDT Start Date: 07/11/18 Stop Date: 07/11/18 Status: Completed famotidine 20 mg, 2 mL, Route: IVP, Drug form: INJ, [id number], Dosing Weight 107.727, kg, Sta rt date: 07/11/18 23:00:00 CDT, Duration: 30 day, Stop date: 08/10/18 22:00:[address] Start Date: 07/11/18 Stop Date: 07/13/18 Status: Discontinued famotidine (ANES) Route: IV, Drug form: INJ, ONCE, Stop date: 07/11/18 12:28:00 CDT Start Date: 07/11/18 Stop Date: 07/11/18 Status: Completed fentaNYL (ANES) Route: IV, Drug form: INJ, ONCE, Stop date: 07/11/18 12:28:00 CDT Start Date: 07/11/18 Stop Date: 07/11/18 Status: Completed fentaNYL (ANES) Route: IV, Drug form: INJ, ONCE, Stop date: 07/11/18 16:14:00 CDT Start Date: 07/11/18 Stop Date: 07/11/18 Status: Completed gabapentin 300 mg, 6 mL, Route: PO, Drug form: SOLN, Q8Hnow, Dosing Weight 107.727, kg, Sta rt date: 07/11/18 13:00:00 CDT, Duration: 30 day, Stop date: 08/10/18 5:00:00 CS T Notes: (Same as: Neurontin) Start Date: 07/11/18 Stop Date: 07/13/18 Status: Discontinued gabapentin 300 mg oral capsule 300 mg, 1 cap, Route: PO, Drug form: CAP, ONCE, Dosing Weight 107.727, kg, Start date: 07/11/18 10:26:00 CDT, Stop date: 07/11/18 10:26:00 CDT Notes: (Same as: Neurontin) Start Date: 07/11/18 Stop Date: 07/11/18 Status: Completed gabapentin 300 mg oral capsule 300 mg, 1 cap, Route: PO, TID, Dosing Weight 107.727, kg, Start date: 07/11/18 1 3:00:00 CDT, Duration: 30 day, Stop date: 08/10/18 9:00:00 COMPOSITION FLOOR SETTER Start Date: 07/11/18 Stop Date: 07/11/18 Status: Deleted heparin 5,000 unit, Route: SUB-Q, ONCE, Dosing Weight 107.727, kg, Start date: 07/11/18 10:17:00 CDT, Stop date: 07/11/18 10:17:00 CDT Start Date: 07/11/18 Stop Date: 07/11/18 Status: Completed Lactated Ringers Injection IV (ANES) 1000 mL Route: IV, Total Volume: 1,000, Start date: 07/11/18 11:28:00 CDT, Stop date: 12:28:00 CDT Start Date: 07/11/18 Stop Date: 07/11/18 Status: Completed Lactated Ringers IV 1,000 mL 1,000 mL, Rate: 100 ml/hr, Infuse over: 10 hr, Route: IV, Dosing Weight 107.727 kg, Total Volume: 1,000, Start date: 07/11/18 20:20:00 CDT, Duration: 30 day, St op date: 08/10/18 20:19:00 COMPOSITION FLOOR SETTER, 2.2, m2 Start Date: 07/11/18 Stop Date: 07/13/18 Status: Discontinued lidocaine (ANES) Route: IV, Drug form: INJ, ONCE, Stop date: 07/11/18 12:28:00 CDT Start Date: 07/11/18 Stop Date: 07/11/18 Status: Completed Lovenox 30 mg, 0.3 mL, Route: SUB-Q, Drug form: INJ, [id number], Dosing Weight 107.727, kg , Start date: 07/12/18 9:00:00 CDT, Duration: 30 day, Stop date: 08/10/18 21:00: 00 COMPOSITION FLOOR SETTER Notes: (Same as: Lovenox) Start Date: 07/12/18 Stop Date: 07/13/18 Status: Discontinued Mefoxin 2 gm, Route: IVPB, Drug form: INJ, PRE OP, Start date: 07/11/18 11:00:00 CDT, Du ration: 1 day, Stop date: 07/12/18 10:59:00 CDT, ABX Indication: Surgical Prophy laxis Notes: (Same As: Mefoxin) MEDICATION WASTE Product Size: 2000 mgProduct Wasted: ___ mg Start Date: 07/11/18 Stop Date: 07/13/18 Status: Discontinued midazolam (ANES) Route: IV, Drug form: SOLN, ONCE, Stop date: 07/11/18 12:28:00 CDT Start Date: 07/11/18 Stop Date: 07/11/18 Status: Completed multivitamin 1 tab, PO, Daily, 0 Refill(s) Start Date: 07/11/18 Status: Ordered omeprazole 20 mg oral delayed release capsule 20 mg=1 cap, PO, BID, # 60 cap, 0 Refill(s) Start Date: 07/13/18 Stop Date: 08/12/18 Status: Ordered ondansetron 4 mg, 2 mL, Route: IVP, Drug form: INJ, Q6H, Dosing Weight 107.727, kg, Start da te: 07/11/18 18:00:00 CDT, Duration: 30 day, Stop date: 08/10/18 12:00:00 COMPOSITION FLOOR SETTER Notes: (Same as: Cassy) MEDICATION WASTE Product Size: 4 mgProduct Was araceli: ___ mg Start Date: 07/11/18 Stop Date: 07/13/18 Status: Discontinued ondansetron (ANES) Route: IV, Drug form: INJ, ONCE, Stop date: 07/11/18 12:28:00 CDT Start Date: 07/11/18 Stop Date: 07/11/18 Status: Completed ondansetron (ANES) Route: IV, Drug form: INJ, ONCE, Stop date: 07/11/18 16:14:00 CDT Start Date: 07/11/18 Stop Date: 07/11/18 Status: Completed phenylephrine (ANES) Route: IV, Drug form: INJ, ONCE, Stop date: 07/11/18 13:08:00 CDT Start Date: 07/11/18 Stop Date: 07/11/18 Status: Completed promethazine 12.5 mg, 0.5 mL, Route: IM, Drug form: INJ, Q6H, Dosing Weight 107.727, kg, PRN Nausea & Vomiting, Start date: 07/11/18 12:20:00 CDT, Duration: 30 day, Stop date: 08/10/18 12:19:00 COMPOSITION FLOOR SETTER Notes: Do not give IV push. (Same as: Phenergan) Start Date: 07/11/18 Stop Date: 07/13/18 Status: Discontinued propofol (ANES) Route: IV, Drug form: INJ, ONCE, Stop date: 07/11/18 12:28:00 CDT Start Date: 07/11/18 Stop Date: 07/11/18 Status: Completed rocuronium (ANES) Route: IV, Drug form: INJ, ONCE, Stop date: 07/11/18 12:28:00 CDT Start Date: 07/11/18 Stop Date: 07/11/18 Status: Completed rocuronium (ANES) Route: IV, Drug form: INJ, ONCE, Stop date: 07/11/18 15:59:00 CDT Start Date: 07/11/18 Stop Date: 07/11/18 Status: Completed scopolamine 1.5 mg transdermal film 1 patch, Route: TOP, Dosing Weight 107.727, kg, ONCE, Start date: 07/11/18 10:18 :00 CDT, Stop date: 07/11/18 10:18:00 CDT Start Date: 07/11/18 Stop Date: 07/11/18 Status: Completed Sodium Chloride 0.9% IV (ANES) 100 mL + dexmedetomidine (ANES) 200 microgram Route: IV, Drug form: INJ, Start date: 07/11/18 11:30:00 CDT, Stop date: 8 12:30:00 CDT Start Date: 07/11/18 Stop Date: 07/11/18 Status: Completed Sodium Chloride 0.9% IV (ANES) 100 mL + ketAMINE (ANES) 100 mg Route: IV, Drug form: INJ, Start date: 07/11/18 11:30:00 CDT, Stop date: 8 12:30:00 CDT Start Date: 07/11/18 Stop Date: 07/11/18 Status: Completed Sodium Chloride 0.9% IV 984.8 mL + M.V.I.-12 10 mL Daily + folic acid IV 1 mg Da juve + thiamine IV 5 984.8 mL, Rate: 100 ml/hr, Infuse over: 9.8 hr, Route: IV, Dosing Weight 107.727 kg, Total Volume: 984.8, Start date: 07/11/18 20:14:00 CDT, Duration: 1 doses or times, Stop date: 07/12/18 6:13:00 CDT, 2.2, m2 Start Date: 07/11/18 Stop Date: 07/11/18 Status: Discontinued sugammadex 500 mg, 5 mL, Route: IV, Drug form: MARIS WILKINS, Start date: 07/11/18 16:24:00 CDT, Duration: 1 doses or times, Stop date: 07/11/18 16:24:00 CDT Notes: (Same as: Yasmeen) Start Date: 07/11/18 Stop Date: 07/13/18 Status: Discontinued sugammadex 200 mg, 2 mL, Route: IV, Drug form: MARIS WILKINS, Start date: 07/11/18 15:49:00 CDT, Duration: 1 doses or times, Stop date: 07/11/18 15:49:00 CDT Notes: (Same as: Yasmeen) Start Date: 07/11/18 Stop Date: 07/13/18 Status: Discontinued sugammadex (ANES) Route: IV, Drug form: PAPITO WILKINS, Stop date: 07/11/18 16:31:00 CDT Start Date: 07/11/18 Stop Date: 07/11/18 Status: Completed tramadol 100 mg, 2 tab, Route: PO, Drug form: TAB, Q6Hnow, Dosing Weight 107.727, kg, PRN Pain Score 7-10, Start date: 07/11/18 12:20:00 CDT, Duration: 30 day, Stop date: 08/10/18 12:19:00 COMPOSITION FLOOR SETTER Notes: Not to exceed 400mg/day. (Same As: Hi) Start Date: 07/11/18 Stop Date: 07/13/18 Status: Discontinued tramadol 50 mg, 1 tab, Route: PO, Drug form: TAB, Q6H, Dosing Weight 107.727, kg, PRN Marcy n Score 4-6, Start date: 07/11/18 12:20:00 CDT, Duration: 30 day, Stop date: 06/19 12:19:00 COMPOSITION FLOOR SETTER Notes: Not to exceed 400mg/day. (Same As: Ultram) Start Date: 07/11/18 Stop Date: 07/13/18 Status: Discontinued tramadol 50 mg oral tablet 50 mg=1 tab, PO, Q6H, PRN Pain Score 6-10, X 7 day, # 28 tab, 0 Refill(s) Start Date: 07/13/18 Stop Date: 07/20/18 Status: Completed Zofran ODT 4 mg oral tablet, disintegrating 4 mg=1 tab, PO, BID, PRN Nausea and Vomiting, Dissolve tab under tongue, # 10 ta b, 0 Refill(s) Start Date: 07/13/18 Stop Date: 07/18/18 Status: Ordered Results 1 2 3 Most recent to oldest [Reference Range]: 5.7 K/CMM (07/13/18 4:03 AM) 12.5 K/CMM *HI* (07/12/18 4:15 AM) 5.7 K/CMM (07/05/18 4:20 PM) Neutrophils # [1.5-8.1 K/CMM] 2.4 K/CMM (07/13/18 4:03 AM) 1.1 K/CMM (07/12/18 4:15 AM) 2.2 K/CMM (07/05/18 4:20 PM) Lymphocytes # [1.0-5.5 K/CMM] 0.5 K/CMM (07/13/18 4:03 AM) 0.7 K/CMM (07/12/18 4:15 AM) 0.6 K/CMM (07/05/18 4:20 PM) Monocytes # [0.0-0.8 K/CMM] 0.1 K/CMM (07/05/18 4:20 PM) Eosinophils # [0.0-0.5 K/CMM] 106 mL/min/1.73m2 1 *NA* (07/13/18 4:03 AM) 116 mL/min/1.73m2 2 *NA* (07/12/18 4:15 AM) 98 mL/min/1.73m2 3 *NA* (07/05/18 4:20 PM) eGFR O POS *Unknown* (07/11/18 9:15 AM) ABO/Rh 0.9 (07/05/18 4:20 PM) A/G Ratio [0.7-1.6] Negative (07/11/18 9:15 AM) Antibody Scrn 3.8 g/dL (07/05/18 4:20 PM) Albumin Lvl [3.5-5.0 g/dL] 78 unit/L (07/05/18 4:20 PM) Alk Phos [39-136 unit/L] 20 unit/L (07/05/18 4:20 PM) ALT [0-65 unit/L] 14.0 mEq/L (07/13/18 4:03 AM) 12.3 mEq/L (07/12/18:15 AM) 11.4 mEq/L (07/05/18 4:20 PM) AGAP [10.0-20.0 mEq/L] 14 unit/L (07/05/18 4:20 PM) AST [0-37 unit/L] 16 (07/05/18 4:20 PM) B/C Ratio [6-25] 0.3 % (07/13/18 4:03 AM) 0.1 % (07/12/18 4:15 AM) 0.5 % (07/05/18 4:20 PM) Basophils [0.0-1.0 %] 8 mg/dL (07/13/18 4:03 AM) 6 mg/dL *LOW* (07/12/18 4:15 AM) 13 mg/dL (07/05/18 4:20 PM) BUN [7-22 mg/dL] 8.0 mg/dL *LOW* (07/13/18 4:03 AM) 8.2 mg/dL *LOW* (07/12/18 4:15 AM) 9.0 mg/dL (07/05/18 4:20 PM) Calcium Lvl [8.5-10.5 mg/dL] 452 unit/L *HI* (07/13/18 4:03 AM) Total CK [12-191 unit/L] 2.3 ng/mL (07/13/18 4:03 AM) CK MB [0.5-3.6 ng/mL] 0.5 (07/13/18 4:03 AM) CK MB Index [0.0-2.5] 106 mEq/L (07/13/18 4:03 AM) 103 mEq/L (07/12/18 4:15 AM) 103 mEq/L (07/05/18:20 PM) Chloride Lvl [95-109 mEq/L] 25 mEq/L (07/13/18 4:03 AM) 26 mEq/L (07/12/18 4:15 AM) 30 mEq/L (07/05/18:20 PM) CO2 [24-32 mEq/L] 0.74 mg/dL (07/13/18 4:03 AM) 0.64 mg/dL (07/12/18 4:15 AM) 0.79 mg/dL (07/05/18:20 PM) Creatinine Lvl [0.50-1.40 mg/dL] 0.5 % (07/13/18 4:03 AM) 1.2 % (07/05/18 4:20 PM) Eosinophils [0.0-4.0 %] 4.3 g/dL *HI* (07/05/18 4:20 PM) Globulin [2.7-4.2 g/dL] 82 mg/dL (07/13/18 4:03 AM) 109 mg/dL *HI* (07/12/18 4:15 AM) 64 mg/dL *LOW* (07/05/18 4:20 PM) Glucose Lvl [70-99 mg/dL] 29.1 % *LOW* (07/13/18 4:03 AM) 33.8 % *LOW* (07/12/18 4:15 AM) 39.7 % (07/05/18 4:20 PM) Hct [36.0-48.0 %] 9.8 g/dL *LOW* (07/13/18 4:03 AM) 11.2 g/dL *LOW* (07/12/18 4:15 AM) 13.1 g/dL (07/05/18 4:20 PM) Hgb [12.0-16.0 g/dL] 5.4 % (07/05/18 4:20 PM) Hgb A1C [<=5.6 %] 1.00 (07/05/18 4:20 PM) INR [0.85-1.17] 4.0 mEq/L (07/13/18 4:03 AM) 4.3 mEq/L (07/12/18 4:15 AM) 4.4 mEq/L (07/05/18:20 PM) Potassium Lvl [3.5-5.1 mEq/L] 27.5 % (07/13/18 4:03 AM) 7.5 % *LOW* (07/12/18:15 AM) 25.9 % (07/05/18:20 PM) Lymphocytes [20.0-40.0 %] 29.6 pg (07/13/18 4:03 AM) 29.3 pg (07/12/18 4:15 AM) 28.7 pg (07/05/18:20 PM) MCH [27.0-31.0 pg] 33.6 g/dL (07/13/18 4:03 AM) 33.2 g/dL (07/12/18 4:15 AM) 32.9 g/dL (07/05/18 4:20 PM) MCHC [32.0-36.0 g/dL] 88.0 fL (07/13/18 4:03 AM) 88.3 fL (07/12/18 4:15 AM) 87.2 fL (07/05/18:20 PM) MCV [80.0-98.0 fL] 1.8 mg/dL (07/13/18 4:03 AM) 1.7 mg/dL *LOW* (07/12/18:15 AM) Magnesium Lvl [1.8-2.4 mg/dL] 6.3 % (07/13/18 4:03 AM) 4.8 % (07/12/18 4:15 AM) 6.4 % (07/05/18 4:20 PM) Monocytes [2.0-12.0 %] 9.3 fL (07/13/18 4:03 AM) 9.9 fL (10/11/18 4:15 AM) 9.2 fL (07/05/18 4:20 PM) MPV [7.4-10.4 fL] 141 mEq/L (07/13/18 4:03 AM) 137 mEq/L (07/12/18 4:15 AM) 140 mEq/L (07/05/18 4:20 PM) Sodium Lvl [135-145 mEq/L] 2.5 mg/dL (07/13/18:03 AM) 3.1 mg/dL (07/12/18:15 AM) Phosphorus [2.5-4.5 mg/dL] 197 K/CMM (07/13/18 4:03 AM) 210 K/CMM (07/12/18 4:15 AM) 352 K/CMM (07/05/18 4:20 PM) Platelet [133-450 K/CMM] 65.4 % (07/13/18 4:03 AM) 87.6 % *HI* (07/12/18: AM) 66.0 % (07/05/18 4:20 PM) Segs [45.0-75.0 %] 8.1 g/dL (07/05/18 4:20 PM) Total Protein [6.4-8.4 g/dL] 13.2 seconds (07/05/18 4:20 PM) PT [12.0-14.7 seconds] 27.3 seconds (07/05/18 4:20 PM) PTT [22.9-35.8 seconds] 3.30 M/CMM *LOW* (07/13/18:03 AM) 3.82 M/CMM *LOW* (07/12/18: AM) 4.56 M/CMM (07/05/18 4:20 PM) RBC [4.20-5.40 M/CMM] 15.1 % *HI* (07/13/18 4:03 AM) 14.9 % *HI* (07/12/18:15 AM) 15.2 % *HI* (07/05/18 4:20 PM) RDW [11.5-14.5 %] 6.3 minutes (07/05/18 4:20 PM) R-time [5.0-10.0 minutes] 1.2 minutes (07/05/18 4:20 PM) K-time [1.0-3.0 minutes] 72.4 degrees *HI* (07/05/18 4:20 PM) Angle [53.0-72.0 degrees] 75.3 mm *HI* (07/05/18 4:20 PM) Max Amp [50.0-70.0 mm] 15.2 K d/sc *HI* (07/05/18 4:20 PM) G-value [4.5-11.0 K d/sc] 0.9 % (07/05/18 4:20 PM) Ly30 [0.0-7.5 %] 2.4 (07/05/18 4:20 PM) Coag Index [-3.0-3.0] Thrombelastograph results show increased values of both Angle Alpha and MA. These findings are suggestive of platelet hypercoagulation. CPT:56969 *NA* (07/05/18 4:20 PM) TEG Interp See Note (07/05/18 4:20 PM) TEG Data 0.4 mg/dL (07/05/18 4:20 PM) Bili Total [0.2-1.3 mg/dL] <0.02 ng/mL (07/13/18 4:03 AM) Troponin-I [0.00-0.40 ng/mL] <0.010 ng/mL (07/13/18 4:03 AM) Troponin-T [0.000-0.100 ng/mL] 8.7 K/CMM (07/13/18 4:03 AM) 14.3 K/CMM *HI* (07/12/18 4:15 AM) 8.7 K/CMM (07/05/18 4:20 PM) WBC [3.7-10.4 K/CMM] 1.09 mMol/L (07/13/18 4:03 AM) 1.11 mMol/L (07/12/18 4:15 AM) Ca Ion WB [1.05-1.25 mMol/L] 1.08 mMol/L (07/13/18 4:03 AM) 1.07 mMol/L (07/12/18 4:15 AM) Ca Norm WB [1.05-1.25 mMol/L] 1Result Comment: The eGFR is calculated using the [...] from the National Kid[employer] Disease Education Program ( NKDEP) which additionally recommends that when the eGFR is used in patients with extremes of body mass index for purposes of drug dosing, the eGFR should be mul tiplied by the estimated BMI. 2Result Comment: The eGFR is calculated using the [...] from the National Kid[employer] Disease Education Program ( NKDEP) which additionally recommends that when the eGFR is used in patients with extremes of body mass index for purposes of drug dosing, the eGFR should be mul tiplied by the estimated BMI. 3Result Comment: The eGFR is calculated using the [...] from the National Kid[employer] Disease Education Program ( NKDEP) which additionally recommends that when the eGFR is used in patients with extremes of body mass index for purposes of drug dosing, the eGFR should be mul tiplied by the estimated BMI. Immunizations No data available for this section Procedures Procedure Date Related Diagnosis Body Site Status Abdominoplasty and liposuction Completed Bilateral tubal ligation Completed Breast reduction, bilateral Completed section Completed Excision of lesion of labia Completed Laparoscopic adjustable gastric banding Completed Tonsillectomy Completed Social History Social History Type Response Substance Abuse Use: None. Alcohol Current, Type Liquor. Frequency: 1-2 times per month. 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 [place] UGI with contrast study ordered. DO on 07/13/2018 [place] Timmy Tao D.O 10:48 CDT Extracted from: Title: APMS Consult Note Author: Akilah Reyes MD [...] Past Medical History: Active Gastric band malfunction ([id number]) Family History: Hypertension Mother Type 2 diabetes mellitus Mother Heart attack Grandparent Stroke (CVA) Mother Cancer, Colon Grandparent Procedure history: Laparoscopic adjustable gastric banding (SNOMED CT 6620104930). section (SNOMED CT 96954274). Tonsillectomy (SNOMED CT 681760398). Bilateral tubal ligation (SNOMED CT 308083418). Excision of lesion of labia (SNOMED CT 0047903753). Abdominoplasty and liposuction (SNOMED CT 107653724). Breast reduction, bilateral (SNOMED CT 536191330). 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 Health Status Allergies: Allergies (1) ActiveReaction vancomycinNone Documented Current medications.Problem list. Review of Systems Constitutional: Negative. Cardiovascular: Negative. Ear/Nose/Mouth/Throat: Negative. Respiratory: Negative. Gastrointestinal: Negative. Musculoskeletal: Negative. Neurologic: Negative. Psychiatric: Negative. Endocrine: Negative. Hematology/Lymphatics: Negative. Physical Examination VS/Measurements Vital Signs (last 24 hrs) Last Charted Temp Oral98.9 DegF (JUL 12 07:30) Heart Rate Uikmdvenpa22 bpm (JUL 12 07:30) Resp Rate 16 BRMIN (JUL 12 03:59) MRE325 mmHg (JUL 12 07:30) DBP64 mmHg (JUL 12:) ZdW390 % (JUL 12:) General: Alert and oriented, No acute distress. Eye: Pupils are equal, round and reactive to light, Extraocular movements are intact. HENT: Normocephalic. Neck: Supple. Respiratory: Respirations are non-labored. Cardiovascular: Normal rate. Musculoskeletal Normal range of motion. Normal strength. Integumentary: Warm, Dry. Neurologic: Alert, Oriented, Normal sensory. Cognition and Speech: Oriented, Speech clear and coherent. Psychiatric: Cooperative, Appropriate mood & affect. Review / Management Results review: Labs (Last four charted values) WBC H 14.3(JUL 12)8.7(JUL 05) Hgb L 11.2(JUL 12)13.1(JUL 05) Hct L 33.8(JUL 12)39.7(JUL 05) Plt 210(JUL 12)352(JUL 05) Na 137(JUL 12)140(JUL 05) K 4.3(JUL 12)4.4(JUL 05) CO2 26(JUL 12)30(JUL 05) Cl 103(JUL 12)103(JUL 05) Cr 0.64(JUL 12)0.79(JUL 05) BUN L 6(JUL 12)13(JUL 05) Glucose Random H 109(JUL 12)L 64(JUL 05) Mg L 1.7(JUL 12) Phos 3.1(JUL 12) Ca L 8.2(JUL 12)9.0(JUL 05) PT 13.2(JUL 05) INR 1.00(JUL 05) PTT 27.3(JUL 05). Chest x-ray results ECG interpretation Impression and [...] please call with any questions or concerns [phone] Addendum TEACHING PHYSICIAN ADDENDUM: I saw and personally examined this patient and discussed the by plan of care with this resident. I have reviewed the note below and agree with the [place], history, examination findings and the plan of care. Jorge Jacobo MD on 07/12/2018 16:02
--- OUTSIDE RECORDS SUMMARY | 2019-04-15 16:02 | XMS REPORT | Summary of Care ---
Author Author [facility] Organization [facility] Address Unknown Phone Unavailable Encounter HQ Dana(FIN) [id number] Date(s): 07/17/18 - 07/18/18 [facility] [address] [place] [address]- Encounter Diagnosis Chest pain (Discharge Diagnosis) - 07/18/18 Other chest pain (Final) - 07/23/18 Allergy status to other antibiotic agents status (Final) - Nicotine dependence, cigarettes, uncomplicated (Final) - Discharge Disposition: Home or Self Care Attending Physician: Hanane García DO Vital Signs 1 2 3 Most recent to oldest [Reference Range]: 154.94 cm (07/17/18 10:22 PM) Height 98.1 DegF (07/18/18 3:41 AM) 98.0 DegF (07/17/18 11:17 PM) 98.2 DegF (07/17/18 10:22 PM) Temperature Oral [96.4-99.1 DegF] 110/67 mmHg (07/18/18 3:41 AM) 113/74 mmHg (07/18/18 12:19 AM) 139/85 mmHg (07/17/18 11:17 PM) Blood Pressure [90-140/60-90 mmHg] 17 BRMIN (07/18/18 3:41 AM) 15 BRMIN (07/18/18 12:19 AM) 21 BRMIN *HI* (07/17/18 11:20 PM) Respiratory Rate [14-20 BRMIN] 94 bpm (07/17/18 10:22 PM) Peripheral Pulse Rate [60-100 bpm] 104.091 kg (07/17/18 10:22 PM) Weight 43.36 m2 (07/17/18 10:22 PM) Body Mass Index Problem List Condition Effective Dates Status Health Status Informant Gastric band Active malfunction(Confirme d) Allergies, Adverse Reactions, Alerts Substance Reaction Severity Status vancomycin Active Medications fentaNYL 50 microgram, Route: IVP, ONCE, Dosing Weight 104.091, kg, Priority: STAT, Start date: 07/17/18 23:54:00 CDT, Stop date: 07/17/18 23:54:00 CDT Start Date: 07/17/18 Stop Date: 07/18/18 Status: Completed morphine Sulfate 4 mg, 1 mL, Route: IVP, Drug form: SOLN, ONCE, Dosing Weight 104.091, kg, Priori ty: STAT, Start date: 07/17/18 22:31:00 CDT, Stop date: 07/17/18 22:31:00 CDT Notes: (Same as:MORPhine Sulfate) Start Date: 07/17/18 Stop Date: 07/17/18 Status: Discontinued morphine Sulfate 4 mg, 1 mL, Route: IVP, Drug form: SOLN, ONCE, Dosing Weight 104.091, kg, Priori ty: STAT, Start date: 07/17/18 22:52:00 CDT, Stop date: 07/17/18 22:52:00 CDT Notes: (Same as:MORPhine Sulfate) Start Date: 07/17/18 Stop Date: 07/17/18 Status: Completed NS (Bolus) IV 1,000 mL, 1,000 ml/hr, Infuse Over: 1 hr, Route: IV, 1,000, Drug form: INJ, ONCE , Priority: STAT, Dosing Weight 104.091 kg, Start date: 07/17/18 22:31:00 CDT, S top date: 07/17/18 22:31:00 CDT Start Date: 07/17/18 Stop Date: 07/17/18 Status: Completed Saline Flush 0.9% 10 mL, Route: IVP, Drug Form: INJ, Dosing Weight 104.091, kg, PRN, PRN Line Flus h, Start date: 07/17/18 22:30:00 CDT, Duration: 30 day, Stop date: 08/16/18 21:2 9:00 CONTROL PANEL OPERATOR CRUDE UNIT Notes: (Same as: BD Posiflush) Start Date: 07/17/18 Stop Date: 07/18/18 Status: Discontinued Valium 5 mg oral tablet 5 mg=1 tab, PO, TID, PRN Muscle Spasms, X 3 day, # 9 tab, 0 Refill(s) Start Date: 07/18/18 Stop Date: 07/21/18 Status: Completed Zofran 4 mg, 2 mL, Route: IVP, Drug form: INJ, ONCE, Dosing Weight 104.091, kg, Priorit y: STAT, Start date: 07/17/18 22:31:00 CDT, Stop date: 07/17/18 22:31:00 CDT Notes: (Same as: Zofran) MEDICATION WASTE Product Size: 4 mgProduct Was araceli: ___ mg Start Date: 07/17/18 Stop Date: 07/17/18 Status: Completed Results Most recent to 1 2 oldest [Reference Range]: Neutrophils # 6.3 K/CMM [1.5-8.1 K/CMM] (07/17/18 11:10 PM) Lymphocytes # 3.0 K/CMM [1.0-5.5 K/CMM] (07/17/18 11:10 PM) Monocytes # [0.0-0.8 0.6 K/CMM K/CMM] (07/17/18 11:10 PM) Eosinophils # 0.3 K/CMM [0.0-0.5 K/CMM] (07/17/18 11:10 PM) Basophils # [0.0-0.2 0.1 K/CMM K/CMM] (07/17/18 11:10 PM) eGFR 103 mL/min/1.73m2 1 *NA* (07/17/18 11:10 PM) A/G Ratio [0.7-1.6] 0.8 (07/17/18 11:10 PM) Albumin Lvl [3.5-5.0 3.6 g/dL g/dL] (07/17/18 11:10 PM) Alk Phos [39-136 123 unit/L unit/L] (07/17/18 11:10 PM) ALT [0-65 unit/L] 74 unit/L *HI* (07/17/18 11:10 PM) AGAP [10.0-20.0 14.9 mEq/L mEq/L] (07/17/18 11:10 PM) AST [0-37 unit/L] 25 unit/L (07/17/18 11:10 PM) B/C Ratio [6-25] 12 (07/17/18 11:10 PM) Basophils [0.0-1.0 0.5 % %] (07/17/18 11:10 PM) BUN [7-22 mg/dL] 9 mg/dL (07/17/18 11:10 PM) Calcium Lvl 8.9 mg/dL [8.5-10.5 mg/dL] (07/17/18 11:10 PM) Total CK [12-191 59 unit/L unit/L] (07/17/18 11:10 PM) Chloride Lvl [95-109 103 mEq/L mEq/L] (07/17/18 11:10 PM) CO2 [24-32 mEq/L] 25 mEq/L (07/17/18 11:10 PM) Creatinine Lvl 0.75 mg/dL [0.50-1.40 mg/dL] (07/17/18 11:10 PM) Eosinophils [0.0-4.0 3.0 % %] (07/17/18 1110 PM) Globulin [2.7-4.2 4.8 g/dL g/dL] *HI* (07/17/18 11:10 PM) Glucose Lvl [70-99 89 mg/dL mg/dL] (07/17/18 11:10 PM) Hct [36.0-48.0 %] 38.6 % (07/17/18 11:10 PM) Hgb [12.0-16.0 g/dL] 13.0 g/dL (07/17/18 11:10 PM) INR [0.85-1.17] 0.98 (07/17/18 11:10 PM) Potassium Lvl 3.9 mEq/L [3.5-5.1 mEq/L] (07/17/18 11:10 PM) Lymphocytes 28.9 % [20.0-40.0 %] (07/17/18 11:10 PM) MCH [27.0-31.0 pg] 29.0 pg (07/17/18 11:10 PM) MCHC [32.0-36.0 33.6 g/dL g/dL] (07/17/18 11:10 PM) MCV [80.0-98.0 fL] 86.2 fL (07/17/18 11:10 PM) Monocytes [2.0-12.0 6.2 % %] (07/17/18 11:10 PM) MPV [7.4-10.4 fL] 9.3 fL (07/17/18 11:10 PM) Sodium Lvl [135-145 139 mEq/L mEq/L] (07/17/18 11:10 PM) Platelet [133-450 330 K/CMM K/CMM] (07/17/18 11:10 PM) Segs [45.0-75.0 %] 61.4 % (07/17/18 11:10 PM) Total Protein 8.4 g/dL [6.4-8.4 g/dL] (07/17/18 11:10 PM) PT [12.0-14.7 13.0 seconds seconds] (07/17/18 11:10 PM) PTT [22.9-35.8 31.5 seconds seconds] (07/17/18 11:10 PM) RBC [4.20-5.40 4.48 M/CMM M/CMM] (07/17/18 11:10 PM) RDW [11.5-14.5 %] 15.0 % *HI* (07/17/18 11:10 PM) S Preg [Negative] Negative *NA* (07/17/18 11:10 PM) Bili Total [0.2-1.3 0.4 mg/dL mg/dL] (07/17/18 11:10 PM) Troponin-I <0.02 ng/mL <0.02 ng/mL [0.00-0.40 ng/mL] (07/18/18 1:38 AM) (07/17/18 11:10 PM) WBC [3.7-10.4 K/CMM] 10.3 K/CMM (07/17/18 11:10 PM) 1Result Comment: The eGFR is calculated using [...] Smoking Cessation Counseling No; Other Tobacco Frequency offline editor; entered on: 07/17/18 Assessment and Plan No data available for this section
--- OUTSIDE RECORDS SUMMARY | 2019-04-15 16:02 | XMS REPORT | Summary of Care ---
Author Author [facility] Organization [facility] Address Unknown Phone Unavailable Encounter HQ Dana(REJI) [id number] Date(s): 06/15/18 - 06/15/18 [facility] [address] [place] [address]- Attending Physician: Tutu Tao DO Admitting Physician: Tutu Tao DO Referring Physician: Tutu Tao DO Vital Signs No data available for this section Problem List Condition Effective Dates Status Health Status Informant Gastric band Active malfunction(Confirme d) Allergies, Adverse Reactions, Alerts Substance Reaction Severity Status vancomycin Active Medications acetaminophen 1,000 mg, Route: PO, PRE OP, Dosing Weight 110, kg, Start date: 07/11/18 6:00:00 CDT, Duration: 30 day, Stop date: 08/10/18 4:59:00 ASBESTOS SHINGLE INSPECTOR Start Date: 07/11/18 Stop Date: 08/10/18 Status: Completed celecoxib 400 mg, Route: PO, PRE OP, Dosing Weight 110, kg, Start date: 07/11/18 6:00:00 C DT, Duration: 30 day, Stop date: 08/10/18 4:59:00 ASBESTOS SHINGLE INSPECTOR Start Date: 07/11/18 Stop Date: 08/10/18 Status: Completed Emend 40 mg, Route: PO, PRE OP, Dosing Weight 110, kg, Start date: 07/11/18 6:00:00 CD T Start Date: 07/11/18 Status: Ordered gabapentin 300 mg, Route: PO, PRE OP, Dosing Weight 110, kg, Start date: 07/11/18 6:00:00 C DT, Duration: 30 day, Stop date: 08/10/18 4:59:00 ASBESTOS SHINGLE INSPECTOR Start Date: 07/11/18 Stop Date: 08/10/18 Status: Completed scopolamine 1.5 mg transdermal film 1 patch, Route: TOP, Drug Form: ERFILM, Dosing Weight 110, kg, PRE OP, Apply beh ind ear. Avoid use in elderly., Start date: 07/11/18 6:00:00 CDT, Duration: 30 day, Stop date: 08/10/18 4:59:00 ASBESTOS SHINGLE INSPECTOR Start Date: 07/11/18 Stop Date: 08/10/18 Status: Completed tramadol 100 mg, Route: PO, Drug form: TAB, PRE OP, Dosing Weight 110, kg, PRN Pain Score 7-10, Start date: 07/11/18 6:00:00 CDT, Duration: 30 day, Stop date: 09/09/18 4 :59:00 ASBESTOS SHINGLE INSPECTOR Start Date: 07/11/18 Stop Date: 09/09/18 Status: Completed tramadol 50 mg, Route: PO, Drug form: TAB, Q6H, Dosing Weight 110, kg, PRN Pain Score 4-6 , Start date: 07/10/18 16:46:00 CDT, Duration: 30 day, Stop date: 08/09/18 16:45 :00 ASBESTOS SHINGLE INSPECTOR Start Date: 07/10/18 Stop Date: 07/10/18 Status: Discontinued Results No data available for this section Immunizations No data available for this section [...] Smoking Cessation Counseling No; Other Tobacco Frequency manager sign; entered on: 07/17/18 Assessment and Plan No data available for this section
--- OUTSIDE RECORDS SUMMARY | 2019-04-15 16:02 | XMS REPORT | Summary of Care ---
Author Author [facility] Organization [facility] Address Unknown Phone Unavailable Encounter HQ Encntr_aliandrea(FIN) [id number] Date(s): 07/03/17 - 08/01/17 [facility] [address] [place] [address]- [phone] Discharge Disposition: Home or Self Care Attending Physician: Tutu Tao DO Referring Physician: Tutu Tao DO Vital Signs No data available for this section Problem List No data available for this section Allergies, Adverse Reactions, Alerts Substance Reaction Severity Status vancomycin Active Medications No data available for this section Results No data available for this section Immunizations No data available for this section Procedures Procedure Date Related Diagnosis Body Site section Laparoscopic adjustable gastric banding Tonsillectomy Social History Social History Type Response Smoking Status Never smoker; Exposure to Tobacco Smoke None; Cigarette Smoking Last 365 Days Yes; Reg Smoking Cessation Counseling No Assessment and Plan No data available for this section
--- OUTSIDE RECORDS SUMMARY | 2019-04-15 16:03 | XMS REPORT | Summary of Care ---
Author Author [facility] Organization [facility] Address Unknown Phone Unavailable Encounter HQ Dana(FIN) [id number] Date(s): 04/20/18 - 05/19/18 [facility] [address] [place] [address]- [phone] Encounter Diagnosis Morbid (severe) obesity due to excess calories (Final) - 06/12/18 Bariatric surgery status (Final) - Discharge Disposition: Home or Self Care Attending Physician: Tutu Tao DO Referring Physician: Tutu Tao DO Vital Signs No data available for this section Problem List Condition Effective Dates Status Health Status Informant Gastric band Active malfunction(Confirme d) Allergies, Adverse Reactions, Alerts Substance Reaction Severity Status vancomycin Active Medications Omnipaque 300 5 btl, Route: IMPLANT, Dosing Weight 97.727, kg, ONCE, Start date: 04/20/18 13:0 9:00 CDT, Stop date: 04/20/18 13:09:00 CDT Start Date: 04/20/18 Stop Date: 04/25/18 Status: Completed Results URINE CHEM Most recent to 1 oldest [Reference Range]: U Preg [Negative] Negative (04/20/18 12:27 PM) Immunizations No data available for this section [...] Smoking Cessation Counseling No; 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
--- OUTSIDE RECORDS SUMMARY | 2019-04-15 16:03 | XMS REPORT | Summary of Care ---
Author Author [facility] Organization [facility] Address Unknown Phone Unavailable Encounter HQ Dana(FIN) [id number] Date(s): 11/23/17 - 11/23/17 [facility] [address] [place] [address]- [phone] Encounter Diagnosis Abdominal pain (Discharge Diagnosis) - 11/23/17 Ovarian cyst (Discharge Diagnosis) - 11/23/17 Other ovarian cyst, left side (Final) - 11/30/17 Essential (primary) hypertension (Final) - Discharge Disposition: Home or Self Care Attending Physician: Ronen Phoenix MD Vital Signs 1 2 3 Most recent to oldest [Reference Range]: 154.94 cm (11/23/17 12:10 PM) Height 98.5 DegF (11/23/17 12:10 PM) Temperature Oral [96.4-99.1 DegF] 125/80 mmHg (11/23/17 8:10 PM) 120/80 mmHg (11/23/17 6:43 PM) 137/88 mmHg (11/23/17 2:00 PM) Blood Pressure [90-140/60-90 mmHg] 18 BRMIN (11/23/17 8:10 PM) 18 BRMIN (11/23/17 6:43 PM) 16 BRMIN (11/23/17 2:00 PM) Respiratory Rate [14-20 BRMIN] 84 bpm (11/23/17 8:10 PM) 75 bpm (11/23/17 6:43 PM) 82 bpm (11/23/17 2:00 PM) Peripheral Pulse Rate [60-100 bpm] 97.727 kg (11/23/17 12:10 PM) Weight 40.71 m2 (11/23/17 12:10 PM) Body Mass Index Problem List No data available for this section Allergies, Adverse Reactions, Alerts Substance Reaction Severity Status vancomycin Active Medications ciprofloxacin 500 mg oral tablet 500 mg=1 tab, PO, Q12H, X 7 day, # 14 tab, 0 Refill(s) Start Date: 11/23/17 Stop Date: 11/30/17 Status: Completed fentaNYL 100 microgram, Route: IVP, ONCE, Dosing Weight 97.727, kg, Priority: STAT, Start date: 11/23/17 13:36:00 CHEMICAL INSTRUMENTATION OFFICER, Stop date: 11/23/17 13:36:00 CHEMICAL INSTRUMENTATION OFFICER Start Date: 11/23/17 Stop Date: 11/23/17 Status: Completed Flagyl 500 mg oral tablet 500 mg=1 tab, PO, Q8H, X 10 day, # 30 tab, 0 Refill(s) Start Date: 11/23/17 Stop Date: 12/03/17 Status: Completed ketOROLAC 30 mg, Route: IVP, Drug form: INJ, ONCE, Dosing Weight 97.727, kg, Priority: STA T, Start date: 11/23/17 18:48:00 CHEMICAL INSTRUMENTATION OFFICER, Stop date: 11/23/17 18:48:00 CHEMICAL INSTRUMENTATION OFFICER Start Date: 11/23/17 Stop Date: 11/23/17 Status: Completed Lantry 5/325 oral tablet 1 tab, Route: PO, Drug Form: TAB, Dosing Weight 97.727, kg, ONCE, STAT, Start da te: 11/23/17 16:54:00 CHEMICAL INSTRUMENTATION OFFICER, Stop date: 11/23/17 16:54:00 CHEMICAL INSTRUMENTATION OFFICER Start Date: 11/23/17 Stop Date: 11/23/17 Status: Completed NS (Bolus) IV 1,000 mL, 1,000 ml/hr, Infuse Over: 1 hr, Route: IV, ONCE, Priority: STAT, Dosin g Weight 97.727 kg, Start date: 11/23/17 13:36:00 CHEMICAL INSTRUMENTATION OFFICER, Stop date: 11/23/17 13:36 :00 CHEMICAL INSTRUMENTATION OFFICER Start Date: 11/23/17 Stop Date: 11/23/17 Status: Completed Tylenol with Codeine #3 oral tablet 1 - 2 tab, PO, Q4H, PRN Pain, X 2 day, # 20 tab, 0 Refill(s) Start Date: 11/23/17 Stop Date: 11/25/17 Status: Completed Zofran 2 mg, Route: IVP, Drug form: INJ, ONCE, Dosing Weight 97.727, kg, Priority: STAT , Start date: 11/23/17 16:54:00 CHEMICAL INSTRUMENTATION OFFICER, Stop date: 11/23/17 16:54:00 CHEMICAL INSTRUMENTATION OFFICER Start Date: 11/23/17 Stop Date: 11/23/17 Status: Completed Zofran 4 mg, Route: IVP, Drug form: INJ, ONCE, Dosing Weight 97.727, kg, Priority: STAT , Start date: 11/23/17 13:36:00 CHEMICAL INSTRUMENTATION OFFICER, Stop date: 11/23/17 13:36:00 CHEMICAL INSTRUMENTATION OFFICER Start Date: 11/23/17 Stop Date: 11/23/17 Status: Completed Zofran 4 mg oral tablet 4 mg=1 tab, PO, BID, # 10 tab, 0 Refill(s) Start Date: 11/23/17 Stop Date: 11/28/17 Status: Ordered Results ELECTROLYTES Most recent to 1 oldest [Reference Range]: Sodium Lvl [135-145 137 mEq/L mEq/L] (11/23/17 1:08 PM) Potassium Lvl 3.9 mEq/L [3.5-5.1 mEq/L] (11/23/17 1:08 PM) Chloride Lvl [95-109 101 mEq/L mEq/L] (11/23/17 1:08 PM) CO2 [24-32 mEq/L] 25 mEq/L (11/23/17 1:08 PM) AGAP [10.0-20.0 14.9 mEq/L mEq/L] (11/23/17 1:08 PM) CHEM PANEL Most recent to 1 oldest [Reference Range]: Creatinine Lvl 0.75 mg/dL [0.50-1.40 mg/dL] (11/23/17 1:08 PM) eGFR 105 mL/min/1.73m2 1 *NA* (11/23/17 1:08 PM) BUN [7-22 mg/dL] 12 mg/dL (11/23/17 1:08 PM) B/C Ratio [6-25] 16 (11/23/17 1:08 PM) Glucose Lvl [70-99 72 mg/dL mg/dL] (11/23/17 1:08 PM) Total Protein 8.4 g/dL [6.4-8.4 g/dL] (11/23/17 1:08 PM) Albumin Lvl [3.5-5.0 3.5 g/dL g/dL] (11/23/17 1:08 PM) Globulin [2.7-4.2 4.9 g/dL g/dL] *HI* (11/23/17 1:08 PM) A/G Ratio [0.7-1.6] 0.7 (11/23/17 1:08 PM) Calcium Lvl 8.5 mg/dL [8.5-10.5 mg/dL] (11/23/17 1:08 PM) Magnesium Lvl 2.0 mg/dL [1.8-2.4 mg/dL] (11/23/17 1:08 PM) ALT [0-65 unit/L] 18 unit/L (11/23/17 1:08 PM) AST [0-37 unit/L] 11 unit/L (11/23/17 1:08 PM) Alk Phos [39-136 71 unit/L unit/L] (11/23/17 1:08 PM) Bili Total [0.2-1.3 0.6 mg/dL mg/dL] (11/23/17 1:08 PM) Lipase Lvl [73-393 113 unit/L unit/L] (11/23/17 1:08 PM) 1Result Comment: The eGFR is calculated [...] be mul tiplied by the estimated BMI. ENDOCRINOLOGY Most recent to 1 oldest [Reference Range]: S Preg [Negative] Negative *NA* (11/23/17 1:08 PM) URINE AND STOOL Most recent to 1 oldest [Reference Range]: UA Turbidity [Clear] Clear (11/23/17 1:08 PM) UA Color Ltyellow *NA* (11/23/17 1:08 PM) UA pH [5.0-8.0] 7.0 (11/23/17 1:08 PM) UA Spec Grav 1.005 [<=1.030] (11/23/17 1:08 PM) UA Glucose [Negative Negative mg/dL mg/dL] *NA* (11/23/17 1:08 PM) UA Blood [Negative] Negative (11/23/17 1:08 PM) UA Ketones [Negative Negative mg/dL mg/dL] *NA* (11/23/17 1:08 PM) UA Protein [Negative Negative mg/dL mg/dL] (11/23/17 1:08 PM) UA Urobilinogen <=1.0 mg/dL [0.1-1.0 mg/dL] *NA* (11/23/17 1:08 PM) UA Bili [Negative] Negative *NA* (11/23/17 1:08 PM) UA Leuk Est Negative [Negative] (11/23/17 1:08 PM) UA Nitrite Negative [Negative] (11/23/17 1:08 PM) UA WBC [0-5 /HPF] 1 /HPF (11/23/17 1:08 PM) UA RBC [0-2 /HPF] 1 /HPF (11/23/17 1:08 PM) UA Bacteria [None Occasional /HPF Seen /HPF] *NA* (11/23/17 1:08 PM) UA Sq Epi [Few /LPF] Occasional /LPF *NA* (11/23/17 1:08 PM) HEMATOLOGY Most recent to 1 oldest [Reference Range]: WBC [3.7-10.4 K/CMM] 9.8 K/CMM (11/23/17 1:08 PM) RBC [4.20-5.40 4.66 M/CMM M/CMM] (11/23/17 1:08 PM) Hgb [12.0-16.0 g/dL] 13.0 g/dL (11/23/17 1:08 PM) Hct [36.0-48.0 %] 38.5 % (11/23/17 1:08 PM) MCV [80.0-98.0 fL] 82.7 fL (11/23/17 1:08 PM) MCH [27.0-31.0 pg] 27.8 pg (11/23/17 1:08 PM) MCHC [32.0-36.0 33.6 g/dL g/dL] (11/23/17 1:08 PM) RDW [11.5-14.5 %] 17.0 % *HI* (11/23/17 1:08 PM) MPV [7.4-10.4 fL] 8.9 fL (11/23/17 1:08 PM) Platelet [133-450 277 K/CMM K/CMM] (11/23/17 1:08 PM) Segs [45.0-75.0 %] 61.3 % (11/23/17 1:08 PM) Lymphocytes 28.6 % [20.0-40.0 %] (11/23/17 1:08 PM) Monocytes [2.0-12.0 8.1 % %] (11/23/17 1:08 PM) Eosinophils [0.0-4.0 1.2 % %] (11/23/17 1:08 PM) Basophils [0.0-1.0 0.8 % %] (11/23/17 1:08 PM) Segs-Bands # 6.0 K/CMM [1.5-8.1 K/CMM] (11/23/17 1:08 PM) Lymphocytes # 2.8 K/CMM [1.0-5.5 K/CMM] (11/23/17 1:08 PM) Monocytes # [0.0-0.8 0.8 K/CMM K/CMM] (11/23/17 1:08 PM) Eosinophils # 0.1 K/CMM [0.0-0.5 K/CMM] (11/23/17 1:08 PM) Basophils # [0.0-0.2 0.1 K/CMM K/CMM] (11/23/17 1:08 PM) Immunizations No data available for this section Procedures Procedure Date Related Diagnosis Body Site Status Bilateral tubal ligation Completed section Completed Excision of lesion of labia Completed Laparoscopic adjustable gastric banding Completed Tonsillectomy Completed Social History Social History Type Response Smoking Status Never smoker; Previous treatment: None; Ready to change: No; Concerns about tobacco use in household: No; Exposure to Tobacco Smoke None; Cigarette Smoking Last 365 Days Yes; Reg Smoking Cessation Counseling No entered on: 11/23/17 Assessment and Plan No data available for this section
--- OUTSIDE RECORDS SUMMARY | 2019-04-15 16:03 | XMS REPORT | Summary of Care ---
Author Author [facility] Organization [facility] Address Unknown Phone Unavailable Encounter STELLA Cortez(REJI) [id number] Date(s): 05/17/18 - 05/17/18 [facility] [address] [place] [address]- [phone] Encounter Diagnosis Other complications of gastric band procedure (Final) - 05/28/18 Gastro-esophageal reflux disease without esophagitis (Final) - Other gastritis without bleeding (Final) - Bariatric surgery status (Final) - Essential (primary) hypertension (Final) - Discharge Disposition: Home or Self Care Attending Physician: Tutu Tao DO Referring Physician: Tutu Tao DO Vital Signs 1 2 3 Most recent to oldest [Reference Range]: 154.94 cm (05/15/18 8:06 AM) Height 98.0 DegF (05/15/18 8:11 AM) Temperature Oral [96.4-99.1 DegF] 100/56 mmHg (05/17/18 1:45 PM) 110/68 mmHg (05/17/18 1:30 PM) 115/72 mmHg (05/17/18 1:15 PM) Blood Pressure [90-140/60-90 mmHg] 20 BRMIN (05/17/18 1:45 PM) 21 BRMIN *HI* (05/17/18 1:30 PM) 16 BRMIN (05/17/18 1:15 PM) Respiratory Rate [14-20 BRMIN] 82 bpm (05/15/18 8:11 AM) Peripheral Pulse Rate [60-100 bpm] 106.091 kg (05/15/18 8:06 AM) Weight 44.19 m2 (05/15/18 8:06 AM) Body Mass Index Problem List Condition Effective Dates Status Health Status Informant Gastric band Active malfunction(Confirme d) Allergies, Adverse Reactions, Alerts Substance Reaction Severity Status vancomycin Active Medications Sodium Chloride 0.9% IV 1,000 mL 1,000 mL, Rate: 25 ml/hr, Infuse over: 40 hr, Route: IV, Dosing Weight 106.091 k g, Total Volume: 1,000, Start date: 05/17/18 12:14:00 CDT, Duration: 30 day, Sto p date: 06/16/18 12:13:00 CDT, 2.18, m2 Start Date: 05/17/18 Stop Date: 05/17/18 Status: Discontinued Results URINE CHEM Most recent to 1 oldest [Reference Range]: U Preg [Negative] Negative (05/15/18 8:07 AM) Immunizations No data available for this section [...] Smoking Cessation Counseling No; Other Tobacco Frequency tool pusher; entered on: 07/17/18 Assessment and Plan No data available for this section
--- OUTSIDE RECORDS SUMMARY | 2019-04-15 16:04 | XMS REPORT | Summary of Care ---
Author Author [facility] Organization [facility] Address Unknown Phone Unavailable Encounter HQ Dana(FIN) [id number] Date(s): 04/20/18 - 04/20/18 [facility] [address] [place] [address]- [phone] Attending Physician: Tutu Tao DO Admitting Physician: [...] Smoking Cessation Counseling No; Other Tobacco Frequency vascular neurologist; entered on: 07/17/18 Assessment and Plan No data available for this section
--- OUTSIDE RECORDS SUMMARY | 2019-04-15 16:04 | XMS REPORT | Summary of Care ---
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
--- OUTSIDE RECORDS SUMMARY | 2019-04-15 16:04 | XMS REPORT | Summary of Care ---
Author Organization Unknown Address Unknown Phone Unavailable Encounter STELLA Cortez(REJI) [id number] Date(s): 01/25/14 - 01/25/14 [facility] [id number] Discharge Diagnosis: VAginal bleeding Discharge Diagnosis: Dysfunctional uterine bleeding Discharge Disposition: Home Physician Attending: Arturo Bell MD Reason for Visit DR BOOTH Vital Signs 1 2 3 Most recent to oldest [Reference Range]: 97.9 DegF (01/25/14 5:30 AM) 98.8 DegF (01/25/14 12:58 AM) Temperature Oral [96.4-99.1 DegF] 115 mmHg (01/25/14 5:30 AM) 127 mmHg (01/25/14 2:05 AM) 144 mmHg *HI* (01/25/14 12:58 AM) Systolic Blood Pressure [90-140 mmHg] 74 mmHg (01/25/14 5:30 AM) 83 mmHg (01/25/14 2:05 AM) 90 mmHg (01/25/14 12:58 AM) Diastolic Blood Pressure [60-90 mmHg] 16 BRMIN (01/25/14 5:30 AM) 18 BRMIN (01/25/14 2:05 AM) 18 BRMIN (01/25/14 12:58 AM) Respiratory Rate [14-20 BRMIN] 71 bpm (01/25/14 5:30 AM) 77 bpm (01/25/14 2:05 AM) 70 bpm (01/25/14 12:58 AM) Peripheral Pulse Rate [60-100 bpm] 81.818 kg (01/25/14 12:58 AM) Weight Problem List No data available for this section Allergies, Adverse Reactions, Alerts Substance Reaction Severity Status vancomycin Active Medications morphine Sulfate 4 mg, Route: IVP, ONCE, Dosing Weight 81.818, kg, Start date: 01/25/14 3:22:00, Stop date: 01/25/14 3:22:00 Start Date: 01/25/14 Stop Date: 01/25/14 Status: Completed Monroe 5/325 oral tablet 1-2 tab, PO, Q4-6H, Pain, # 12 tab, 0 Refill(s) Start Date: 01/25/14 Stop Date: 01/30/14 Status: Ordered Monroe 5/325 oral tablet 2 tab, Route: PO, Dosing Weight 81.818, kg, ONCE, Start date: 01/25/14 2:00:00, Stop date: 01/25/14 2:00:00 Start Date: 01/25/14 Stop Date: 01/25/14 Status: Completed Provera 10 mg, 1 tab, Route: PO, Drug form: TAB, ONCE, Dosing Weight 81.818, kg, Start d ate: 01/25/14 3:49:00, Stop date: 01/25/14 3:49:00 Notes: (Same as: Provera) Start Date: 01/25/14 Stop Date: 01/25/14 Status: Completed Provera 10 mg oral tablet 10 mg=1 tab, PO, Daily, # 7 tab, 0 Refill(s) Start Date: 01/25/14 Stop Date: 02/01/14 Status: Ordered Results BLOOD BANK RESULTS Most recent to 1 oldest [Reference Range]: ABO/Rh O POS *Unknown* (01/25/14 1:23 AM) Antibody Scrn Negative (01/25/14 1:23 AM) ELECTROLYTES Most recent to 1 oldest [Reference Range]: Sodium Lvl [135-145 140 mEq/L mEq/L] (01/25/14 1:23 AM) Potassium Lvl 3.7 mEq/L [3.5-5.1 mEq/L] (01/25/14 1:23 AM) Chloride Lvl [95-109 107 mEq/L mEq/L] (01/25/14 1:23 AM) CO2 [24-32 mEq/L] 27 mEq/L (01/25/14 1:23 AM) AGAP [10.0-20.0 9.7 mEq/L mEq/L] *LOW* (01/25/14 1:23 AM) CHEM PANEL Most recent to 1 oldest [Reference Range]: Creatinine Lvl 0.9 mg/dL [0.5-1.4 mg/dL] (01/25/14 1:23 AM) eGFR 86 mL/min/1.73m2 1 *NA* (01/25/14 1:23 AM) BUN [7-22 mg/dL] 13 mg/dL (01/25/14 1:23 AM) B/C Ratio [6-25] 14 (01/25/14 1:23 AM) Glucose Lvl [70-99 91 mg/dL 2 mg/dL] (01/25/14 1:23 AM) Total Protein 7.7 g/dL [6.4-8.4 g/dL] (01/25/14 1:23 AM) Albumin Lvl [3.5-5.0 3.7 g/dL g/dL] (01/25/14 1:23 AM) Globulin [2.0-4.0 4.0 g/dL g/dL] (01/25/14 1:23 AM) A/G Ratio [0.7-1.6] 0.9 (01/25/14 1:23 AM) Calcium Lvl 9.0 mg/dL [8.5-10.5 mg/dL] (01/25/14 1:23 AM) ALT [0-65 unit/L] 13 unit/L (01/25/14 1:23 AM) AST [0-37 unit/L] 8 unit/L (01/25/14 1:23 AM) Alk Phos [39-136 64 unit/L unit/L] (01/25/14 1:23 AM) Bili Total [0.2-1.3 0.3 mg/dL mg/dL] (01/25/14 1:23 AM) 1Result Comment: The eGFR is calculated using [...] be mul tiplied by the estimated BMI. 2Interpretive Data: Adult reference range values reflect the clinical guidelines of the [place] [employer]. ENDOCRINOLOGY Most recent to 1 oldest [Reference Range]: S Preg [Negative] Negative *NA* (01/25/14 1:23 AM) HEMATOLOGY Most recent to 1 oldest [Reference Range]: WBC [3.7-10.4 K/CMM] 6.1 K/CMM (01/25/14 1:23 AM) RBC [4.20-5.40 3.96 M/CMM M/CMM] *LOW* (01/25/14 1:23 AM) Hgb [12.0-16.0 g/dL] 10.5 g/dL *LOW* (01/25/14:23 AM) Hct [36.0-48.0 %] 30.9 % *LOW* (01/25/14 1:23 AM) MCV [81.0-99.0 fL] 78.1 fL *LOW* (01/25/14 1:23 AM) MCH [27.0-31.0 pg] 26.4 pg *LOW* (01/25/14 1:23 AM) MCHC [32.0-36.0 33.8 g/dL g/dL] (01/25/14 1:23 AM) RDW [11.5-14.5 %] 18.5 % *HI* (01/25/14 1:23 AM) Platelet [133-450 243 K/CMM K/CMM] (01/25/14 1:23 AM) MPV [7.4-10.4 fL] 9.5 fL (01/25/14 1:23 AM) Segs [45.0-75.0 %] 58.6 % (01/25/14 1:23 AM) Lymphocytes 29.0 % [20.0-40.0 %] (01/25/14 1:23 AM) Monocytes [2.0-12.0 10.6 % %] (01/25/14 1:23 AM) Eosinophils [0.0-4.0 1.8 % %] (01/25/14 1:23 AM) Basophils [0.0-1.0 0.0 % %] (01/25/14 1:23 AM) Segs-Bands # 3.6 K/CMM [1.5-8.1 K/CMM] (01/25/14 1:23 AM) Lymphocytes # 1.8 K/CMM [1.0-5.5 K/CMM] (01/25/14 1:23 AM) Monocytes # [0.0-0.8 0.6 K/CMM K/CMM] (01/25/14 1:23 AM) Eosinophils # 0.1 K/CMM [0.0-0.5 K/CMM] (01/25/14 1:23 AM) Basophils # [0.0-0.2 0.0 K/CMM K/CMM] (01/25/14 1:23 AM) Medications Administered During Your Visit No data available for this section Immunizations No data available for this section
--- OUTSIDE RECORDS SUMMARY | 2019-04-15 16:05 | XMS REPORT | Summary of Care ---
Author Organization Unknown Address Unknown Phone Unavailable Encounter STELLA Cortez(REJI) [id number] Date(s): 03/26/15 - 03/27/15 [facility] [address] [place] [address]- Discharge Diagnosis: Acute gastritis Discharge Diagnosis: Acute headache Discharge Disposition: Home Physician Attending: Quique Thompson MD Vital Signs 1 2 3 Most recent to oldest [Reference Range]: 154.94 cm (03/26/15 7:13 PM) Height 98.6 DegF (03/27/15 12:16 AM) 98.6 DegF (03/26/15 10:22 PM) 99.7 DegF *HI* (03/26/15 7:48 PM) Temperature Oral [96.4-99.1 DegF] 125/77 mmHg (03/27/15 12:16 AM) 127/84 mmHg (03/26/15 10:22 PM) 136/69 mmHg (03/26/15 7:48 PM) Blood Pressure [90-140/60-90 mmHg] 18 BRMIN (03/27/15 12:16 AM) 18 BRMIN (03/26/15 10:22 PM) 20 BRMIN (03/26/15 7:48 PM) Respiratory Rate [14-20 BRMIN] 81 bpm (03/27/15 12:16 AM) 82 bpm (03/26/15 10:22 PM) 104 bpm *HI* (03/26/15 7:48 PM) Peripheral Pulse Rate [60-100 bpm] 84.091 kg (03/26/15 7:13 PM) Weight 35.03 m2 (03/26/15 7:13 PM) Body Mass Index Problem List No data available for this section Allergies, Adverse Reactions, Alerts Substance Reaction Severity Status vancomycin Active Medications acetaminophen 975 mg, Route: PO, Drug form: TAB, ONCE, Dosing Weight 84.091, kg, Priority: STA T, Start date: 03/26/15 19:16:00, Stop date: 03/26/15 19:16:00 Start Date: 03/26/15 Stop Date: 03/26/15 Status: Completed acetaminophen-hydrocodone 325 mg-10 mg oral tablet 1 tab, Route: PO, Drug Form: TAB, Dosing Weight 84.091, kg, ONCE, STAT, Start da te: 03/26/15 21:55:00, Stop date: 03/26/15 21:55:00 Notes: Do not exceed 4gm/day of acetaminophen. (Same as: Gause 325/10) Start Date: 03/26/15 Stop Date: 03/26/15 Status: Completed ketOROLAC 15 mg, Route: IVP, ONCE, Dosing Weight 84.091, kg, Priority: STAT, Start date: 0 03/26/15 20:32:00, Stop date: 03/26/15 20:32:00 Start Date: 03/26/15 Stop Date: 03/26/15 Status: Completed morphine Sulfate 2 mg, Route: IVP, Drug form: INJ, ONCE, Dosing Weight 84.091, kg, Priority: STAT , Start date: 03/26/15 22:58:00, Stop date: 03/26/15 22:58:00 Start Date: 03/26/15 Stop Date: 03/26/15 Status: Completed Phenergan 12.5 mg oral tablet 12.5 mg=1 tab, PO, Q4H, PRN Other-See Comments, X 3 day, # 18 tab, 0 Refill(s) Start Date: 03/26/15 Stop Date: 03/29/15 Status: Ordered Saline Flush 0.9% 10 mL, Route: IVP, Drug Form: INJ, Dosing Weight 84.091, kg, PRN, PRN Line Flush , Start date: 03/26/15 20:32:00, Duration: 30 day, Stop date: 04/25/15 20:31:00 Notes: (Same as: BD Posiflush) Start Date: 03/26/15 Stop Date: 03/27/15 Status: Discontinued Sodium Chloride 0.9% (Bolus) IV 1,000 mL, Infuse Over: 1 hr, Route: IV, ONCE, Priority: STAT, Dosing Weight 84.0 91 kg, Start date: 03/26/15 20:32:00, Duration: 1 doses or times, Stop date: 20:32:00 Start Date: 03/26/15 Stop Date: 03/26/15 Status: Completed Sodium Chloride 0.9% (Bolus) IV 1,000 mL, 1,000 ml/hr, Infuse Over: 1 hr, Route: IV, ONCE, Priority: STAT, Dosin g Weight 84.091 kg, Start date: 03/26/15 22:58:00, Duration: 1 doses or times, S top date: 03/26/15 22:58:00 Start Date: 03/26/15 Stop Date: 03/26/15 Status: Completed Ultram 50 mg oral tablet 50 mg=1 tab, PO, Q4H, PRN pain, X 3 day, # 20 tab, 0 Refill(s) Start Date: 03/26/15 Stop Date: 03/29/15 Status: Ordered Zofran 4 mg, Route: IVP, Drug form: INJ, ONCE, Dosing Weight 84.091, kg, Priority: STAT , Start date: 03/26/15 22:36:00, Stop date: 03/26/15 22:36:00 Start Date: 03/26/15 Stop Date: 03/26/15 Status: Completed Results ELECTROLYTES Most recent to 1 oldest [Reference Range]: Sodium Lvl [135-145 137 mEq/L mEq/L] (03/26/15 8:53 PM) Potassium Lvl 3.7 mEq/L [3.5-5.1 mEq/L] (03/26/15 8:53 PM) Chloride Lvl [95-109 104 mEq/L mEq/L] (03/26/15 8:53 PM) CO2 [24-32 mEq/L] 26 mEq/L (03/26/15 8:53 PM) AGAP [10.0-20.0 10.7 mEq/L mEq/L] (03/26/15 8:53 PM) CHEM PANEL Most recent to 1 oldest [Reference Range]: Creatinine Lvl 0.9 mg/dL [0.5-1.4 mg/dL] (03/26/15 8:53 PM) eGFR 85 mL/min/1.73m2 1 *NA* (03/26/15 8:53 PM) BUN [7-22 mg/dL] 8 mg/dL (03/26/15 8:53 PM) B/C Ratio [6-25] 9 (03/26/15 8:53 PM) Glucose Lvl [70-99 95 mg/dL 2 mg/dL] (03/26/15 8:53 PM) Total Protein 7.8 g/dL [6.4-8.4 g/dL] (03/26/15 8:53 PM) Albumin Lvl [3.5-5.0 3.4 g/dL g/dL] *LOW* (03/26/15 8:53 PM) Globulin [2.0-4.0 4.4 g/dL g/dL] *HI* (03/26/15 8:53 PM) A/G Ratio [0.7-1.6] 0.8 (03/26/15 8:53 PM) Calcium Lvl 8.4 mg/dL [8.5-10.5 mg/dL] *LOW* (03/26/15 8:53 PM) ALT [0-65 unit/L] 14 unit/L (03/26/15 8:53 PM) AST [0-37 unit/L] 14 unit/L (03/26/15 8:53 PM) Alk Phos [39-136 68 unit/L unit/L] (03/26/15 8:53 PM) Bili Total [0.2-1.3 0.2 mg/dL mg/dL] (03/26/15 8:53 PM) 1Result Comment: The eGFR is calculated [...] values reflect the clinical guidelines of the [place] [employer]. CARDIAC ENZYMES Most recent to 1 oldest [Reference Range]: Total CK [12-191 60 unit/L unit/L] (03/26/15 8:53 PM) CK MB [0.5-3.6 <0.5 ng/mL ng/mL] (03/26/15 8:53 PM) CK MB Index <0.8 [0.0-2.5] (03/26/15 8:53 PM) Troponin-I <0.02 ng/mL [0.00-0.40 ng/mL] (03/26/15 8:53 PM) ENDOCRINOLOGY Most recent to 1 oldest [Reference Range]: S Preg [Negative] Negative *NA* (03/26/15 8:53 PM) URINE AND STOOL Most recent to 1 oldest [Reference Range]: UA Turbidity [Clear] Marked *ABN* (03/26/15 8:53 PM) UA Color [Yellow] Yellow *NA* (03/26/15 8:53 PM) UA pH [5.0-8.0] 7.0 (03/26/15 8:53 PM) UA Spec Grav 1.024 [<=1.030] (03/26/15 8:53 PM) UA Glucose [Negative Negative mg/dL mg/dL] *NA* (03/26/15 8:53 PM) UA Blood [Negative] Negative (03/26/15 8:53 PM) UA Ketones [Negative Trace mg/dL mg/dL] *ABN* (03/26/15 8:53 PM) UA Protein [Negative 30 mg/dL mg/dL] *ABN* (03/26/15 8:53 PM) UA Urobilinogen <=1.0 mg/dL [0.1-1.0 mg/dL] *NA* (03/26/15 8:53 PM) UA Bili [Negative] Negative *NA* (03/26/15 8:53 PM) UA Leuk Est Negative [Negative] (03/26/15 8:53 PM) UA Nitrite Negative [Negative] (03/26/15 8:53 PM) UA WBC [0-5 /HPF] 23 /HPF *HI* (03/26/15 8:53 PM) UA RBC [0-2 /HPF] 10 /HPF *HI* (03/26/15 8:53 PM) UA Sq Epi [Few /LPF] Moderate /LPF *ABN* (03/26/15 8:53 PM) UA Mucus [None Seen Many /LPF /LPF] *ABN* (03/26/15 8:53 PM) UA Trans Epi [<=0 3 /LPF /LPF] *HI* (03/26/15 8:53 PM) HEMATOLOGY Most recent to 1 oldest [Reference Range]: WBC [3.7-10.4 K/CMM] 7.9 K/CMM (03/26/15 8:53 PM) RBC [4.20-5.40 4.25 M/CMM M/CMM] (03/26/15 8:53 PM) Hgb [12.0-16.0 g/dL] 9.6 g/dL *LOW* (03/26/15 8:53 PM) Hct [36.0-48.0 %] 30.1 % *LOW* (03/26/15 8:53 PM) MCV [80.0-98.0 fL] 70.7 fL *LOW* (03/26/15 8:53 PM) MCH [27.0-31.0 pg] 22.6 pg *LOW* (03/26/15 8:53 PM) MCHC [32.0-36.0 32.0 g/dL g/dL] (03/26/15 8:53 PM) RDW [11.5-14.5 %] 18.3 % *HI* (03/26/15 8:53 PM) Platelet [133-450 245 K/CMM K/CMM] (03/26/15 8:53 PM) MPV [7.4-10.4 fL] 9.4 fL (03/26/15 8:53 PM) Segs [45.0-75.0 %] 76.8 % *HI* (03/26/15 8:53 PM) Lymphocytes 16.1 % [20.0-40.0 %] *LOW* (03/26/15 8:53 PM) Monocytes [2.0-12.0 6.3 % %] (03/26/15 8:53 PM) Eosinophils [0.0-4.0 0.4 % %] (03/26/15 8:53 PM) Basophils [0.0-1.0 0.4 % %] (03/26/15 8:53 PM) Segs-Bands # 6.1 K/CMM [1.5-8.1 K/CMM] (03/26/15 8:53 PM) Lymphocytes # 1.3 K/CMM [1.0-5.5 K/CMM] (03/26/15 8:53 PM) Monocytes # [0.0-0.8 0.5 K/CMM K/CMM] (03/26/15 8:53 PM) Microcyte [None 2+ Seen] *ABN* (03/26/15 8:53 PM) PT [12.0-14.7 12.9 seconds seconds] (03/26/15 8:53 PM) INR [0.85-1.17] 0.97 3 (03/26/15 8:53 PM) PTT [22.9-35.8 26.5 seconds 4 seconds] (03/26/15 8:53 PM) 3Interpretive Data: RECOMMENDED RANGES FOR PROTIME INR: 2.0-3.0 for most medical and surgical thromboembolic states. 2.5-3.5 for artificial heart valves and recurrent embolism. INR SHOULD BE USED ONLY FOR PATIENTS ON STABLE ANTICOAGULANT THERAPY. 4Interpretive Data: Heparin Therapeutic Range: 57 - 92 Seconds RAPID Most recent to 1 oldest [Reference Range]: Grp A Strep Scr Negative [Negative] (03/26/15 10:22 PM) Immunizations No data available for this section Procedures Procedure Date Related Diagnosis Body Site section Laparoscopic adjustable gastric banding Tonsillectomy Social History Social History Type Response Smoking Status Never smoker; Exposure to Tobacco Smoke None; Cigarette Smoking Last 365 Days Yes; Reg Smoking Cessation Counseling No Assessment and Plan No data available for this section
--- OUTSIDE RECORDS SUMMARY | 2019-04-15 16:05 | XMS REPORT | Clinical Summary ---
Author Author [facility] Organization [facility] Address Unknown Phone Unavailable Care Team Providers Care Food Products Sales Representative Name Role Phone PCP Unavailable Allergies Active Allergy Reactions Severity Noted Date Comments Vancomycin 04/26/2017 Current Medications No known medications Active Problems Problem Noted Date SOB (shortness of breath) 04/26/2017 Encounters Date Type Specialty Care Team Description 04/26/2017 Emergency Emergency Medicine Andrey Drake SOB (shortness of breath) (Primary Dx) after 04/16/2017 Social History Tobacco Use Types Packs/Day Years Used Date Never Assessed Sex Assigned at Date Recorded Not on file Last Filed Vital Signs Vital Sign Reading Time Taken Blood Pressure 136/86 04/26/2017 12:28 PM CDT Pulse 90 04/26/2017 12:28 PM CDT Temperature 36.8 C (98.2 F) 04/26/2017 12:28 PM CDT Respiratory Rate 18 04/26/2017 12:28 PM CDT Oxygen Saturation 98% 04/26/2017 12:28 PM CDT Inhaled Oxygen - - Concentration Weight 94.4 kg (208 lb 1.6 oz) 04/26/2017 9:02 AM CDT Height - - Body Mass Index - - Plan of Treatment Health Maintenance Due Date Last Done Comments Cervical Cancer Scrn (3 2004 Yrs) Results * BMP POC (04/26/2017 10:03 AM) Component Value Ref Range CO2 POC 26Comment: Physician Notified 21 - 32 mmol/L Chloride POC 103 98 - 107 mmol/L Potassium POC 4.4 3.50 - 5.10 mmol/L Sodium POC 142 136 - 145 mmol/L Glucose POC 93 74 - 106 mg/dL Urea Nitrogen POC 11 7 - 18 mg/dL Creatinine POC 0.7 0.6 - 1.3 mg/dL Calcium Ionized POC 1.23 1.15 - 1.29 mmol/L Hemoglobin POC 12.9 12.0 - 16.0 g/dL Hematocrit POC 38.0 37.0 - 47.0 % GFR, Estimated >60 mL/min/1.73 m2 GFR, Estim, Afr-Am >60 mL/min/1.73 m2 Specimen Performing Laboratory MISYS * D-DIMER (04/26/2017 10:00 AM) Component Value Ref Range D-Dimer 0.25 ug/mL,FEU Comment: Values of quantitative d-Dimer less than 0.40 ug/mL FEU have been reported to be associated with a low probability of deep vein thrombosis/pulmonary embolism. This test alone should not be used to rule out DVT/PE. Specimen Performing Laboratory Blood MISYS * XRAY CHEST 2 VIEWS (04/26/2017 9:38 AM) Specimen Performing Laboratory SMS Impressions IMPRESSION:No acute pleural pulmonary abnormality. This [facility] radiology report is a preliminary resident dictation until finalized by an attending.Changes to this preliminary report may occur in an additional preliminary or finalized version. Dictated By: Joyce Massey MD, 04/26/2017 9:49 AM I have reviewed the study and agree with the findings in this report. Signed By: Belkis Patrick MD, 04/26/2017 9:58 AM Narrative EXAM: XR CHEST 2 VIEWS DATE: 04/26/2017 [...] Bones: No acute bony abnormality is identified. Procedure Note Interface, Rad/Mammog In - 04/26/2017 10:03 AM CDT EXAM: XR CHEST 2 VIEWS DATE: 04/26/2017 [...] IMPRESSION: No acute pleural pulmonary abnormality. This [facility] radiology report is a preliminary resident dictation until finalized by an attending. Changes to this preliminary report may occur in an additional preliminary or finalized version. Dictated By: Joyce Massey MD, 04/26/2017 9:49 AM I have reviewed the study and agree with the findings in this report. Signed By: Belkis Patrick MD, 04/26/2017 9:58 AM * 12 LEAD EKG (04/26/2017 9:07 AM) Component Value Ref Range 12 LEAD EKG FOR [facility] Test Date:2017-04-26 Pat Name: XU ARDONDepartment: : Gender: FT echnician: WINSOME LT :1985 Requested By: Order Number: Reading MD: Domingo Silverio Measurements Intervals [place] Rate: 87 P:56 RI: 130QRS :52 QRSD: 79 T:56 QT: 323 QTc:391 Interpretive Statements SINUS RHYTHM LOW QRS VOLTAGE IN III, AVL, AND PRECORDIAL LEADS ABNORMAL EKG Electronically Signed On 04-27-17 14:25:50 CDT by Domingo Silverio Specimen Performing Laboratory SMS after 04/16/2017
--- OUTSIDE RECORDS SUMMARY | 2019-04-15 16:06 | XMS REPORT | Clinical Summary ---
Author Author [facility] Organization [facility] Address Unknown Phone Unavailable Care Team Providers Care District Ranger Name Role Phone PCP Unavailable Allergies Active Allergy Reactions Severity Noted Date Comments Vancomycin 04/26/2017 Current Medications No known medications Active Problems Problem Noted Date SOB (shortness of breath) 04/26/2017 Encounters Date Type Specialty Care Team Description 04/26/2017 Emergency Emergency Medicine Andrey Drake SOB (shortness of breath) (Primary Dx) after 04/23/2017 Social History Tobacco Use Types Packs/Day Years [...] Comments Cervical Cancer Scrn (3 2004 Yrs) IMM Influenza Seasonal 07/02/2018 Oct to November (>/=19 yrs) Results * BMP POC (04/26/2017 10:03 AM) [...] Impressions IMPRESSION:No acute pleural pulmonary abnormality. This [facility] radiology report is a preliminary [...] IMPRESSION: No acute pleural pulmonary abnormality. This [facility] radiology report is a preliminary [...] Ref Range 12 LEAD EKG FOR [facility] Test Date:2017-04-26 Pat Name: XU ARDONDepartment: : Gender: FT echnician: WINSOME LT :1985 Requested By: Order Number: Reading MD: Domingo Silverio Measurements Intervals [place] Rate: 87 P:56 [place]: 130QRS :52 QRSD: 79 T:56 QT: 323 QTc:391 Interpretive Statements SINUS RHYTHM LOW QRS VOLTAGE IN III, AVL, AND PRECORDIAL LEADS ABNORMAL EKG Electronically Signed On 04-27-17 14:25:50 CDT by Domingo Silverio Specimen Performing Laboratory SMS after 04/23/2017
[2019-04-15] MEDS ORDERED: MORPHINE SULFATE 2 MG/ML SYR 1ML IV STA ×2 (16:20→17:54)
[2019-04-15] MEDS ORDERED: MORPHINE SULFATE INJ 4 MG/ML INJ 1ML IV ONE ×2 (16:30→18:00)
[2019-04-15] MEDS ORDERED: ONDANSETRON HCL INJ 2MG/ML 2ML 2 MG/ML VIAL IV ONE ×2 (16:30→16:45)
[2019-04-15] MEDS ORDERED: SODIUM CHLORIDE 0.9% 1000ML 1,000 ML IV SCH (16:30)
[2019-04-15] MEDS ORDERED: SODIUM CHLORIDE 0.9% 1000ML 2,000 ML ONE (16:31)
[2019-04-15] MEDS ORDERED: ONDANSETRON HCL INJ 2MG/ML 2ML 2 MG/ML VIAL ONE (16:31)
[2019-04-15] MEDS ORDERED: MORPHINE SULFATE INJ 4 MG/ML INJ 1ML ONE ×2 (16:31→17:56)
[2019-04-15] MEDS ORDERED: IBUPROFEN 100 MG/5 ML SUSP ONE (16:32)
[2019-04-15] MEDS ORDERED: ONDANSETRON HCL INJ 2MG/ML 2ML 2 MG/ML VIAL IV STA (16:38)
--- NOTE | 2019-04-15 16:40 | NUR ---
motrin pulled, per md, to wait 30 mins to one hr after zofran to see if nausea/vomiting improved to given motrin exlir. pt states unable to swallow pills. pt given urine cup, but states unable to void at this time d/t little fluid intake today <6 oz.
[2019-04-15] MEDS ORDERED: IBUPROFEN 100 MG/5 ML SUSP PO ONE (16:45)
[2019-04-15] MEDS ORDERED: BACITRACIN ZINC 0.9GM TP ONE (17:11)
[2019-04-15] MEDS ORDERED: KETOROLAC TROMETHAMINE 30 MG/ML VIAL IV ONE (18:10)
[2019-04-15] MEDS ORDERED: CEFTRIAXONE SOD 1 GM VIAL IM ONE (18:15)
[2019-04-15 18:42] VITALS: BP 107/66
== END 2019-04-15 18:46 | disposition home or self-care (01) ==
LOC: FSED 15:53
DX: R10.31 Right lower quadrant pain (principal); R10.32 Left lower quadrant pain; N30.01 Acute cystitis with hematuria
CPT/HCPCS: 80053; 81003; 81025; 85025; 99284; J0696; J1885; J2270; J2405; J7030